=== PATIENT | female | born 1940 | race African-American/Black ===

== ENCOUNTER 2024-01-19 10:28 | Inpatient (IN) | payer BC, MEDICAID, MEDICARE ==
[2024-01-19] VITALS (10 sets, daily range): BP systolic 106–125; BP diastolic 62–83; PULSE 78–98; RESP 18–20; TEMP 36.28068–36.5292; O2SAT 96–98
[~2024-01-19] VITALS: Ht 160 cm; Wt 55.8 kg
[~2024-01-19 10:28] MED LIST: ASPIRIN; CLONIDINE; LISINOPRIL; LORATIDINE; [UNRECOGNIZED DRUG - OTHER]
[2024-01-19 11:55] LABS: HEMATOCRIT. 35.1 % (36.0-48.0); HEMOGLOBIN. 10.7 g/dL (12.0-16.0); MEAN CORPUSCULAR HEMOGLOBIN 30.1 pg (28.0-32.0); MEAN CORPUSCULAR HGB CONC 30.5 g/dL (31.0-37.0); MEAN CORPUSCULAR VOLUME 98.5 fL (81.0-99.0); PLATELET 157 x1000/uL (130-400); RED BLOOD CELL COUNT 3.57 mill/uL (4.2-5.4); RED CELL DISTRIBUTION WIDTH 18.5 % (11.6-14.6); WHITE BLOOD COUNT 3.7 x1000/uL (4.5-11.0)
[2024-01-19 11:58] LABS: DIFFERENTIAL COMMENT 1
[2024-01-19 12:04] LABS: CHLORIDE 105 mEq/L (98-107); POTASSIUM 4.5 mEq/L (3.5-5.1); SODIUM 141 mEq/L (136-145)
[2024-01-19 12:05] LABS: CALCIUM 9.8 mg/dL (8.7-10.4); CARBON DIOXIDE 35 mEq/L (21-32)
[2024-01-19 12:10] LABS: CREATININE 1.6 mg/dL (0.6-1.0); GLUCOSE 83 mg/dL (70-105); UREA NITROGEN BLOOD 45 mg/dL (9-23)
[2024-01-19 12:11] LABS: TROPONIN I HIGH SENSITIVITY 17 ng/L (3.0-34)
[2024-01-19 12:45] LABS: ANISOCYTOSIS 2+; PLATELET ESTIMATE NORMAL
[2024-01-19 13:17] LABS: HEPATITIS B SURFACE ANTIGEN NEGATIVE (Negative)
[2024-01-19 13:42] LABS: HEPATITIS A AB IGM NEGATIVE (Negative)
[2024-01-19 13:43] LABS: HEPATITIS B CORE AB IGM NEGATIVE (Negative); HEPATITIS C AB NON REACTIVE (Neg) (Negative)
[2024-01-19] MEDS ORDERED: IPRATROPIUM/ALBUTEROL 0.5-3(2.5)MG/3ML NEB HHN PRN (17:15)
[2024-01-19] MEDS ORDERED: ENOXAPARIN 40MG/0.4ML SYR SUBCUT SCH (17:15)
[2024-01-19] MEDS ORDERED: ONDANSETRON HCL 4MG/2ML INJ IV PRN (17:15)
[2024-01-19] MEDS ORDERED: ACETAMINOPHEN 325MG TABLET PO PRN (17:15)
[2024-01-19] MEDS: ENOXAPARIN 30MG/0.3ML SYR SUBCUT SCH (17:41)
[2024-01-19] MEDS ORDERED: NALOXONE HCL 0.4MG/ML VIAL IV PRN (21:15)
[2024-01-20] VITALS: BP 95/64; PULSE 79; RESP 20; TEMP 36.28068; O2SAT 99
[2024-01-20 00:59] LABS: CREATINE KINASE MB FRACTION 1.3 ng/mL (0.5-3.6)
[2024-01-20] MEDS: HYDROCODONE/ACETAMINOPHEN 5/325MG TABLET PO PRN (02:15)
[2024-01-20 04:00] VITALS: BP 102/63; PULSE 82; RESP 20; TEMP 36.22512; O2SAT 99
[2024-01-20 06:05] LABS: POTASSIUM 4.8 mEq/L (3.5-5.1)
[2024-01-20 06:08] LABS: HEMATOCRIT. 32.6 % (36.0-48.0); HEMOGLOBIN. 9.9 g/dL (12.0-16.0); MEAN CORPUSCULAR HEMOGLOBIN 29.9 pg (28.0-32.0); MEAN CORPUSCULAR HGB CONC 30.5 g/dL (31.0-37.0); MEAN CORPUSCULAR VOLUME 98.2 fL (81.0-99.0); PLATELET 140 x1000/uL (130-400); RED BLOOD CELL COUNT 3.32 mill/uL (4.2-5.4); RED CELL DISTRIBUTION WIDTH 18.5 % (11.6-14.6); WHITE BLOOD COUNT 2.8 x1000/uL (4.5-11.0)
[2024-01-20 06:11] LABS: CREATINE KINASE MB FRACTION 1.2 ng/mL (0.5-3.6); CREATININE 1.6 mg/dL (0.6-1.0)
[2024-01-20 06:15] LABS: T4 FREE 0.91 ng/dL (0.89-1.76); THYROID STIMULATING HORMONE 0.57 uIU/mL (0.55-4.78)
[2024-01-20 06:48] LABS: DIFFERENTIAL COMMENT 1
[2024-01-20 08:00] VITALS: BP 101/56; PULSE 82; RESP 17; TEMP 36.44736; O2SAT 100
[2024-01-20] MEDS: ASPIRIN 81MG EC TABLET PO SCH (08:57)
[2024-01-20 12:00] VITALS: BP 112/56; PULSE 88; RESP 17; TEMP 36.50292; O2SAT 100
[2024-01-20 12:31] LABS: PLATELET ESTIMATE NORMAL
[2024-01-20] MEDS: PIPERACILLIN/TAZO 3.375G/50ML 50 ML IV SCH (15:26)
[2024-01-20 16:00] VITALS: BP 107/59; PULSE 90; RESP 17; TEMP 36.50292; O2SAT 100
[2024-01-20 20:00] VITALS: BP 116/61; PULSE 72; RESP 17; TEMP 36.3918; O2SAT 96
[2024-01-21] VITALS (8 sets, daily range): BP systolic 92–131; BP diastolic 53–76; PULSE 78–88; RESP 17–20; TEMP 36.3918–36.78072; O2SAT 98–99
[2024-01-21] MEDS ORDERED: AMOX50SU15 MT ×2 (12:43→12:50)
[2024-01-22] MEDS ORDERED: PIPERACILLIN/TAZO 3.375G/50ML 50 ML IV SCH (02:00)
== END 2024-01-21 18:00 | DRG 189 ==
LOC: ER 10:28 → 8WST 12:23 → EDBEDREQTM 12:25 → EDBEDREQ 12:25
PROVIDERS: ADMIT Internal Medicine; ATTEND Internal Medicine
PROC: 5A1D70Z Performance of Urinary Filtration, Intermittent, Less than 6 Hours Per Day (ICD-10-PCS; principal; 2024-01-19)
PROC: 5A1D70Z Performance of Urinary Filtration, Intermittent, Less than 6 Hours Per Day (ICD-10-PCS; 2024-01-21)
DX: J96.01 Acute respiratory failure with hypoxia (principal); N18.6 End stage renal disease; I12.0 Hypertensive chronic kidney disease with stage 5 chronic kidney disease or end stage renal disease; E87.70 Fluid overload, unspecified; D64.9 Anemia, unspecified; J44.9 Chronic obstructive pulmonary disease, unspecified; Z99.2 Dependence on renal dialysis; Z99.81 Dependence on supplemental oxygen; I25.2 Old myocardial infarction
CPT/HCPCS: 36415; 71045; 80048; 82550; 82553; 83880; 84439; 84443; 84484; 85025; 86705; 86709; 87340; 90935; 93005; 99285; C1893; J1650; J2543

== ENCOUNTER 2024-04-06 06:06 | Inpatient (IN) | payer BC, MEDICAID, MEDICARE ==
[2024-04-06] VITALS (11 sets, daily range): BP systolic 81–101; BP diastolic 49–62; PULSE 77–95; RESP 18–24; TEMP 36.22512–36.44736; O2SAT 97–100
[~2024-04-06] VITALS: Ht 162.6 cm; Wt 49.0 kg
[~2024-04-06 06:06] MED LIST changes: +AMOX50SU15 MT; -ASPIRIN; -CLONIDINE; -LISINOPRIL; -LORATIDINE; -[UNRECOGNIZED DRUG - OTHER]
[2024-04-06 07:48] LABS: BASOPHILS % 0.4 % (0.0-2.0); DIFFERENTIAL COMMENT 0; EOSINOPHILS % 0.6 % (0.0-5.0); HEMATOCRIT. 43.6 % (36.0-48.0); HEMOGLOBIN. 13.9 g/dL (12.0-16.0); LYMPHOCYTES % 8.7 % (20.0-50.0); MEAN CORPUSCULAR HEMOGLOBIN 32.5 pg (28.0-32.0); MEAN CORPUSCULAR HGB CONC 31.8 g/dL (31.0-37.0); MEAN CORPUSCULAR VOLUME 102.3 fL (81.0-99.0); MEAN PLATELET VOLUME 8.1 fl (7.4-10.4); MONOCYTES % 5.5 % (2.0-8.0); NEUTROPHILS % 84.8 % (40.0-76.0); PLATELET 120 x1000/uL (130-400); RED BLOOD CELL COUNT 4.27 mill/uL (4.2-5.4); RED CELL DISTRIBUTION WIDTH 21.9 % (11.6-14.6)
[2024-04-06 07:56] LABS: CARBON DIOXIDE 30 mEq/L (21-32); CHLORIDE 99 mEq/L (98-107); POTASSIUM 5.7 mEq/L (3.5-5.1); SODIUM 138 mEq/L (136-145)
[2024-04-06 07:57] LABS: CALCIUM 9.6 mg/dL (8.7-10.4)
[2024-04-06 08:02] LABS: GLUCOSE 142 mg/dL (70-105)
[2024-04-06 08:08] LABS: UREA NITROGEN BLOOD 57 mg/dL (9-23)
[2024-04-06 08:28] LABS: CREATININE 4.4 mg/dL (0.6-1.0); TROPONIN I HIGH SENSITIVITY 199 ng/L (3.0-34)
[2024-04-06] MEDS: MORPHINE SULFATE 4 MG/ML INJ (FOR IV/IM USE) IV NR (09:18)
[2024-04-06] MEDS ORDERED: METOPROLOL TARTRATE 25MG TABLET PO NR (10:00)
[2024-04-06] MEDS ORDERED: METOPROLOL TARTRATE 5MG/5ML VIAL IV NR (10:00)
[2024-04-06] MEDS: ENOXAPARIN 60MG/0.6ML SYR SUBCUT NR (10:04)
[2024-04-06] MEDS: ASPIRIN 325MG EC TABLET PO NR (10:06)
[2024-04-06] MEDS ORDERED: ONDANSETRON HCL 4MG/2ML INJ IV PRN (10:30)
[2024-04-06 10:32] LABS: TROPONIN I HIGH SENSITIVITY 227 ng/L (3.0-34)
[2024-04-06] MEDS: CALCIUM CHLORIDE 1GM/10ML SYR IV NR (10:42)
[2024-04-06] MEDS: METHYLPREDNISOLONE SOD SUCC 40MG/ML (ACT-O-VIAL) IV SCH (10:42)
[2024-04-06] MEDS: SODIUM CHLORIDE 0.9% 250 ML IV ONE (10:49)
[2024-04-06] MEDS: INSULIN REGULAR (HUMULIN R) 1000UNITS/10ML VIAL IV NR (10:56)
[2024-04-06] MEDS: DEXTROSE 50% WATER 50ML SYRINGE IV NR (11:05)
[2024-04-06 12:29] LABS: HEPATITIS B SURFACE ANTIGEN NEGATIVE (Negative)
[2024-04-06 12:50] LABS: HEPATITIS A AB IGM NEGATIVE (Negative); HEPATITIS B CORE AB IGM NEGATIVE (Negative)
[2024-04-06 12:51] LABS: HEPATITIS C AB NON REACTIVE (Neg) (Negative)
[2024-04-06] MEDS: IPRATROPIUM/ALBUTEROL 0.5-3(2.5)MG/3ML NEB HHN SCH (12:55)
[2024-04-06] MEDS ORDERED: HEPARIN 5000 UNITS/ML VIAL IV PRN ×2 (15:15)
[2024-04-06] MEDS ORDERED: HEPARIN 5000 UNITS/ML VIAL IV SCH (15:15)
[2024-04-06] MEDS ORDERED: HEPARIN 25,000 UNITS PREMIX 250 ML IV PRN (15:15)
[2024-04-06 16:26] LABS: INR 1.3; PARTIAL THROMBOPLASTIN TIME 32.5 sec (23.4-31.0); PROTHROMBIN TIME 13.8 sec (9.6-11.0)
[2024-04-06] MEDS: MIDODRINE HCL 5MG TABLET PO SCH (16:32)
[2024-04-06] MEDS: NOREPINEPHRINE 8MG/250ML PMX 250 ML IV PRN (17:19)
[2024-04-06] MEDS ORDERED: FAMOTIDINE 20MG TABLET PO SCH (21:00)
[2024-04-06] MEDS ORDERED: ATORVASTATIN CALCIUM 40MG TABLET PO SCH (21:00)
[2024-04-07] VITALS (17 sets, daily range): BP systolic 93–115; BP diastolic 51–98; PULSE 62–122; RESP 13–25; TEMP 36.72516–36.7516; O2SAT 92–100
[2024-04-07] MEDS ORDERED: IPRATROPIUM/ALBUTEROL 0.5-3(2.5)MG/3ML NEB HHN PRN (03:15)
[2024-04-07] MEDS: IPRATROPIUM/ALBUTEROL 0.5-3(2.5)MG/3ML NEB HHN SCH (03:21)
[2024-04-07] MEDS: FAMOTIDINE 20MG TABLET PO SCH (05:49)
[2024-04-07] MEDS: ASPIRIN 81MG TABLET PO SCH (09:00)
[2024-04-07] MEDS: ENOXAPARIN 60MG/0.6ML SYR SUBCUT SCH (10:07)
[2024-04-07 19:21] LABS: BG BASE EXCESS -10.4 mmol/L (-2.0-3.0); BG CARBOXYHEMOGLOBIN 1.3 % (0.5-1.5); BG DEOXYHEMOGLOBIN 7.4 % (0.0-5.0); BG FRACTION INSPIRED OXYGEN 36; BG HCO3 ACT 17.7 mmol/L (21.0-28.0); BG METHEMOGLOBIN 0.3 % (0.5-1.5); BG OXYGEN SATURATION 92.5 % (94.0-98.0); BG PCO2 48.3 mmHg (32.0-45.0); BG PH 7.183 (7.350-7.450); BG PO2 70.4 mmHg (83.0-108.0); BG SAMPLE SITE RIGHT RADIAL; BG TOTAL HEMOGLOBIN 12.9 g/dL (12.0-16.0); BG VENT MODE NASAL CANNULA
[2024-04-07] MEDS: BUDESONIDE 0.5MG/2ML NEB HHN SCH (19:51)
[2024-04-07] MEDS: ATORVASTATIN CALCIUM 40MG TABLET PO SCH (22:37)
[2024-04-07] MEDS: NOREPINEPHRINE 8MG/250ML PMX 250 ML IV PRN (22:53)
[2024-04-08] VITALS (100 sets, daily range): BP systolic 76–162; BP diastolic 25–129; PULSE 80–125; RESP 12–27; TEMP 36.44736–36.9474; O2SAT 87–100
[2024-04-08] MEDS: DIPHENHYDRAMINE 50MG/ML VIAL IV PRN (02:22)
[2024-04-08 06:19] LABS: CALCIUM 9.7 mg/dL (8.7-10.4)
[2024-04-08 06:21] LABS: HEMATOCRIT. 43.9 % (36.0-48.0); HEMOGLOBIN. 13.4 g/dL (12.0-16.0); MEAN CORPUSCULAR HEMOGLOBIN 32.5 pg (28.0-32.0); MEAN CORPUSCULAR HGB CONC 30.6 g/dL (31.0-37.0); MEAN CORPUSCULAR VOLUME 106.2 fL (81.0-99.0); PLATELET 120 x1000/uL (130-400); RED BLOOD CELL COUNT 4.14 mill/uL (4.2-5.4); RED CELL DISTRIBUTION WIDTH 20.8 % (11.6-14.6); WHITE BLOOD COUNT 4.5 x1000/uL (4.5-11.0)
[2024-04-08 06:43] LABS: CREATININE 5.3 mg/dL (0.6-1.0)
[2024-04-08 07:30] LABS: DIFFERENTIAL COMMENT 1
[2024-04-08] MEDS: SODIUM ZIRCONIUM CYCLOSILICATE 10GM/PACKET PO NR (07:30)
[2024-04-08] MEDS: SODIUM BICARBONATE 8.4% 50MEQ/50ML SYR IV NR (09:39)
[2024-04-08] MEDS: DEXTROSE 50% WATER 50ML SYRINGE IV NR (09:39)
[2024-04-08] MEDS: INSULIN REGULAR (HUMULIN R) 1000UNITS/10ML VIAL IV NR (09:40)
[2024-04-08 10:40] LABS: ANISOCYTOSIS 2+; PLATELET ESTIMATE NORMAL
[2024-04-09] VITALS (114 sets, daily range): BP systolic 58–169; BP diastolic 25–142; PULSE 15–125; RESP 12–25; TEMP 36.28068–36.72516; O2SAT 88–100
[2024-04-09 06:26] LABS: BG BASE EXCESS -3.8 mmol/L (-2.0-3.0); BG DEOXYHEMOGLOBIN 3.2 % (0.0-5.0); BG FRACTION INSPIRED OXYGEN 40; BG HCO3 ACT 25.6 mmol/L (21.0-28.0); BG METHEMOGLOBIN 0.3 % (0.5-1.5); BG OXYGEN SATURATION 96.8 % (94.0-98.0); BG OXYHEMOGLOBIN 95.5 % (94.0-98.0); BG PCO2 66.9 mmHg (32.0-45.0); BG PO2 95.9 mmHg (83.0-108.0); BG SAMPLE SITE RIGHT RADIAL; BG TOTAL HEMOGLOBIN 13.9 g/dL (12.0-16.0); BG VENT MODE MASK - SIMPLE
[2024-04-09 07:34] LABS: CHLORIDE 105 mEq/L (98-107); POTASSIUM 4.9 mEq/L (3.5-5.1); SODIUM 141 mEq/L (136-145)
[2024-04-09 07:34] LABS: INR 1.2; PARTIAL THROMBOPLASTIN TIME 31.3 sec (23.4-31.0)
[2024-04-09 07:35] LABS: CALCIUM 9.8 mg/dL (8.7-10.4); CARBON DIOXIDE 21 mEq/L (21-32)
[2024-04-09 07:40] LABS: CREATININE 4.1 mg/dL (0.6-1.0); GLUCOSE 125 mg/dL (70-105); UREA NITROGEN BLOOD 42 mg/dL (9-23)
[2024-04-09 07:42] LABS: ALANINE AMINOTRANSFERASE 43 IU/L (10-49); ALBUMIN 3.7 g/dL (3.2-4.8); ASPARTATE AMINOTRANSFERASE 30 IU/L (<34); PHOSPHORUS 7.2 mg/dL (2.5-4.9)
[2024-04-09 07:43] LABS: BILIRUBIN TOTAL 0.5 mg/dL (0.1-1.0); PROTEIN TOTAL 6.4 g/dL (6.0-8.3)
[2024-04-09 07:46] LABS: HEMATOCRIT. 42.6 % (36.0-48.0); HEMOGLOBIN. 13.1 g/dL (12.0-16.0); MEAN CORPUSCULAR HEMOGLOBIN 32.6 pg (28.0-32.0); MEAN CORPUSCULAR HGB CONC 30.6 g/dL (31.0-37.0); MEAN CORPUSCULAR VOLUME 106.5 fL (81.0-99.0); MEAN PLATELET VOLUME 8.9 fl (7.4-10.4); PLATELET 109 x1000/uL (130-400); RED CELL DISTRIBUTION WIDTH 20.9 % (11.6-14.6); WHITE BLOOD COUNT 5.9 x1000/uL (4.5-11.0)
[2024-04-09 07:53] LABS: DIFFERENTIAL COMMENT 1
[2024-04-09 08:48] LABS: NUCLEATED RED BLOOD CELLS 4 /100 WBC
[2024-04-09 08:49] LABS: ANISOCYTOSIS 2+; PLATELET ESTIMATE SLIGHTLY DECREASED
[2024-04-10] VITALS (95 sets, daily range): BP systolic 73–160; BP diastolic 32–122; PULSE 91–111; RESP 13–28; TEMP 36.16956–37.94748; O2SAT 91–100
[2024-04-10] MEDS: ACETAMINOPHEN 325MG TABLET PO PRN (04:41)
[2024-04-10 06:39] LABS: HEMATOCRIT. 40.7 % (36.0-48.0); HEMOGLOBIN. 12.6 g/dL (12.0-16.0); MEAN CORPUSCULAR HEMOGLOBIN 32.2 pg (28.0-32.0); MEAN CORPUSCULAR HGB CONC 30.9 g/dL (31.0-37.0); MEAN PLATELET VOLUME 9.4 fl (7.4-10.4); PLATELET 112 x1000/uL (130-400); RED BLOOD CELL COUNT 3.92 mill/uL (4.2-5.4); RED CELL DISTRIBUTION WIDTH 21.1 % (11.6-14.6)
[2024-04-10 06:40] LABS: CHLORIDE 106 mEq/L (98-107); POTASSIUM 4.9 mEq/L (3.5-5.1); SODIUM 142 mEq/L (136-145)
[2024-04-10 06:43] LABS: CALCIUM 10.4 mg/dL (8.7-10.4); CARBON DIOXIDE 20 mEq/L (21-32)
[2024-04-10 06:48] LABS: GLUCOSE 123 mg/dL (70-105); UREA NITROGEN BLOOD 62 mg/dL (9-23)
[2024-04-10 06:49] LABS: ALANINE AMINOTRANSFERASE 41 IU/L (10-49)
[2024-04-10 06:50] LABS: ALBUMIN 3.8 g/dL (3.2-4.8); ASPARTATE AMINOTRANSFERASE 20 IU/L (<34); BILIRUBIN TOTAL 0.5 mg/dL (0.1-1.0); PROTEIN TOTAL 6.2 g/dL (6.0-8.3)
[2024-04-10 06:58] LABS: DIFFERENTIAL COMMENT 1
[2024-04-10 07:01] LABS: INR 1.2; PARTIAL THROMBOPLASTIN TIME 32.7 sec (23.4-31.0); PROTHROMBIN TIME 13.5 sec (9.6-11.0)
[2024-04-10 08:43] LABS: CREATININE 5.3 mg/dL (0.6-1.0)
[2024-04-10 08:45] LABS: PHOSPHORUS 8.4 mg/dL (2.5-4.9)
[2024-04-10 13:02] LABS: NUCLEATED RED BLOOD CELLS 3 /100 WBC; PLATELET ESTIMATE SLIGHTLY DECREASED
[2024-04-10 13:03] LABS: ANISOCYTOSIS 1+
[2024-04-10] MEDS: ENOXAPARIN 30MG/0.3ML SYR SUBCUT SCH (16:08)
[2024-04-11] VITALS (98 sets, daily range): BP systolic 84–152; BP diastolic 34–138; PULSE 85–110; RESP 13–27; TEMP 35.5584–36.61404; O2SAT 86–100
[2024-04-11 06:39] LABS: HEMOGLOBIN. 12.8 g/dL (12.0-16.0); MEAN CORPUSCULAR HEMOGLOBIN 32.2 pg (28.0-32.0); MEAN CORPUSCULAR HGB CONC 31.2 g/dL (31.0-37.0); MEAN CORPUSCULAR VOLUME 103.3 fL (81.0-99.0); MEAN PLATELET VOLUME 9.6 fl (7.4-10.4); PLATELET 98 x1000/uL (130-400); RED BLOOD CELL COUNT 3.98 mill/uL (4.2-5.4); RED CELL DISTRIBUTION WIDTH 21.2 % (11.6-14.6)
[2024-04-11 06:42] LABS: DIFFERENTIAL COMMENT 1
[2024-04-11 06:58] LABS: CARBON DIOXIDE 20 mEq/L (21-32); CHLORIDE 102 mEq/L (98-107); POTASSIUM 4.6 mEq/L (3.5-5.1); SODIUM 138 mEq/L (136-145)
[2024-04-11 06:59] LABS: CALCIUM 10.7 mg/dL (8.7-10.4)
[2024-04-11 07:03] LABS: CREATININE 4.5 mg/dL (0.6-1.0); GLUCOSE 100 mg/dL (70-105)
[2024-04-11 07:04] LABS: UREA NITROGEN BLOOD 51 mg/dL (9-23)
[2024-04-11 07:05] LABS: ALANINE AMINOTRANSFERASE 41 IU/L (10-49); ALBUMIN 3.9 g/dL (3.2-4.8); ASPARTATE AMINOTRANSFERASE 24 IU/L (<34)
[2024-04-11 07:06] LABS: BILIRUBIN TOTAL 0.5 mg/dL (0.1-1.0); PROTEIN TOTAL 6.3 g/dL (6.0-8.3)
[2024-04-11 07:23] LABS: INR 1.2; PARTIAL THROMBOPLASTIN TIME 29.7 sec (23.4-31.0)
[2024-04-11] MEDS: SEVELAMER CARBONATE 800 MG TABLET PO SCH (13:20)
[2024-04-11 16:37] LABS: PLATELET ESTIMATE SLIGHTLY DECREASED
[2024-04-11 21:15] LABS: BG CARBOXYHEMOGLOBIN 1.4 % (0.5-1.5); BG DEOXYHEMOGLOBIN 5.5 % (0.0-5.0); BG FRACTION INSPIRED OXYGEN 36; BG HCO3 ACT 23.4 mmol/L (21.0-28.0); BG METHEMOGLOBIN 0.3 % (0.5-1.5); BG OXYGEN SATURATION 94.4 % (94.0-98.0); BG OXYHEMOGLOBIN 92.8 % (94.0-98.0); BG PCO2 58.6 mmHg (32.0-45.0); BG PO2 80.2 mmHg (83.0-108.0); BG SAMPLE SITE RIGHT RADIAL; BG TOTAL HEMOGLOBIN 13.5 g/dL (12.0-16.0); BG VENT MODE NASAL CANNULA
[2024-04-12] VITALS (107 sets, daily range): BP systolic 84–142; BP diastolic 39–124; PULSE 74–97; RESP 13–26; TEMP 36.22512–37.11408; O2SAT 94–100
[2024-04-12] MEDS: BUDESONIDE 0.5MG/2ML NEB HHN SCH (02:20)
[2024-04-12 06:46] LABS: INR 1.2
[2024-04-12 06:53] LABS: HEMOGLOBIN 12.4 g/dL (12.0-16.0); MEAN CORPUSCULAR HEMOGLOBIN 32.4 pg (28.0-32.0); MEAN CORPUSCULAR HGB CONC 31.8 g/dL (31.0-37.0); MEAN CORPUSCULAR VOLUME 101.8 fL (81.0-99.0); PLATELET 92 x1000/uL (130-400); RED BLOOD CELL COUNT 3.83 mill/uL (4.2-5.4); RED CELL DISTRIBUTION WIDTH 20.2 % (11.6-14.6); WHITE BLOOD COUNT 3.2 x1000/uL (4.5-11.0)
[2024-04-12 06:59] LABS: POTASSIUM 4.6 mEq/L (3.5-5.1)
[2024-04-12 07:00] LABS: CALCIUM 10.1 mg/dL (8.7-10.4)
[2024-04-12 07:28] LABS: CREATININE 5.3 mg/dL (0.6-1.0)
[2024-04-12 09:21] LABS: BG BASE EXCESS -4.7 mmol/L (-2.0-3.0); BG CARBOXYHEMOGLOBIN 1.5 % (0.5-1.5); BG DEOXYHEMOGLOBIN 0.4 % (0.0-5.0); BG FRACTION INSPIRED OXYGEN 50; BG HCO3 ACT 23.6 mmol/L (21.0-28.0); BG METHEMOGLOBIN 0.1 % (0.5-1.5); BG OXYGEN SATURATION 99.6 % (94.0-98.0); BG PCO2 57.9 mmHg (32.0-45.0); BG PH 7.229 (7.350-7.450); BG PO2 177.3 mmHg (83.0-108.0); BG SAMPLE SITE RIGHT RADIAL; BG TOTAL HEMOGLOBIN 13.3 g/dL (12.0-16.0); BG TOTAL RESPIRATORY RATE 16 b/min; BG VENT MODE MASK - BIPAP
[2024-04-12 13:35] LABS: BG BASE EXCESS -5.7 mmol/L (-2.0-3.0); BG CARBOXYHEMOGLOBIN 1.3 % (0.5-1.5); BG DEOXYHEMOGLOBIN 0.9 % (0.0-5.0); BG FRACTION INSPIRED OXYGEN 50; BG HCO3 ACT 23.2 mmol/L (21.0-28.0); BG METHEMOGLOBIN 0.3 % (0.5-1.5); BG OXYGEN SATURATION 99.1 % (94.0-98.0); BG OXYHEMOGLOBIN 97.5 % (94.0-98.0); BG PCO2 61.1 mmHg (32.0-45.0); BG PH 7.198 (7.350-7.450); BG PO2 139.7 mmHg (83.0-108.0); BG SAMPLE SITE RIGHT RADIAL; BG TOTAL HEMOGLOBIN 13.3 g/dL (12.0-16.0); BG VENT MODE MASK - BIPAP
[2024-04-12] MEDS: IPRATROPIUM/ALBUTEROL 0.5-3(2.5)MG/3ML NEB HHN SCH (14:20)
[2024-04-13] VITALS (104 sets, daily range): BP systolic 66–162; BP diastolic 35–132; PULSE 65–103; RESP 12–26; TEMP 36.6696–37.05852; O2SAT 66–100
[2024-04-13 08:57] LABS: HEMOGLOBIN. 12.1 g/dL (12.0-16.0); MEAN CORPUSCULAR HEMOGLOBIN 32.4 pg (28.0-32.0); MEAN CORPUSCULAR VOLUME 101.2 fL (81.0-99.0); MEAN PLATELET VOLUME 9.6 fl (7.4-10.4); PLATELET 87 x1000/uL (130-400); RED BLOOD CELL COUNT 3.75 mill/uL (4.2-5.4); RED CELL DISTRIBUTION WIDTH 20.1 % (11.6-14.6)
[2024-04-13 09:03] LABS: DIFFERENTIAL COMMENT 1
[2024-04-13 09:11] LABS: CALCIUM 9.9 mg/dL (8.7-10.4)
[2024-04-13 09:47] LABS: BG BASE EXCESS 0.3 mmol/L (-2.0-3.0); BG CARBOXYHEMOGLOBIN 1.8 % (0.5-1.5); BG DEOXYHEMOGLOBIN 0.6 % (0.0-5.0); BG FRACTION INSPIRED OXYGEN 50; BG METHEMOGLOBIN 0.3 % (0.5-1.5); BG OXYGEN SATURATION 99.4 % (94.0-98.0); BG OXYHEMOGLOBIN 97.3 % (94.0-98.0); BG PCO2 52.5 mmHg (32.0-45.0); BG PH 7.329 (7.350-7.450); BG PO2 147.6 mmHg (83.0-108.0); BG SAMPLE SITE RIGHT RADIAL; BG TOTAL HEMOGLOBIN 12.3 g/dL (12.0-16.0); BG VENT MODE MASK - BIPAP
[2024-04-13 17:02] LABS: ANISOCYTOSIS 2+; GIANT PLATELETS FEW; PLATELET ESTIMATE DECREASED
[2024-04-14] VITALS (62 sets, daily range): BP systolic 79–152; BP diastolic 48–80; PULSE 70–102; RESP 13–25; TEMP 36.6696–36.89184; O2SAT 94–100
[2024-04-14 06:48] LABS: CHLORIDE 106 mEq/L (98-107); POTASSIUM 4.3 mEq/L (3.5-5.1); SODIUM 142 mEq/L (136-145)
[2024-04-14 06:49] LABS: CALCIUM 9.6 mg/dL (8.7-10.4); CARBON DIOXIDE 26 mEq/L (21-32)
[2024-04-14 06:54] LABS: GLUCOSE 105 mg/dL (70-105); UREA NITROGEN BLOOD 70 mg/dL (9-23)
[2024-04-14 06:56] LABS: PHOSPHORUS 5.6 mg/dL (2.5-4.9)
[2024-04-14 07:05] LABS: CREATININE 5.8 mg/dL (0.6-1.0)
[2024-04-14 07:07] LABS: HEMOGLOBIN. 11.3 g/dL (12.0-16.0); MEAN CORPUSCULAR HEMOGLOBIN 32.6 pg (28.0-32.0); MEAN CORPUSCULAR HGB CONC 32.2 g/dL (31.0-37.0); PLATELET 81 x1000/uL (130-400); RED BLOOD CELL COUNT 3.47 mill/uL (4.2-5.4); RED CELL DISTRIBUTION WIDTH 19.9 % (11.6-14.6); WHITE BLOOD COUNT 5.3 x1000/uL (4.5-11.0)
[2024-04-14 08:12] LABS: DIFFERENTIAL COMMENT 1
[2024-04-14 13:14] LABS: PLATELET ESTIMATE DECREASED
[2024-04-14 13:15] LABS: ANISOCYTOSIS 2+
[2024-04-15] VITALS (24 sets, daily range): BP systolic 88–125; BP diastolic 39–71; PULSE 81–92; RESP 12–24; TEMP 36.16956–36.61404; O2SAT 89–100
[2024-04-15 06:03] LABS: POTASSIUM 4.7 mEq/L (3.5-5.1)
[2024-04-15 06:04] LABS: CALCIUM 10.1 mg/dL (8.7-10.4)
[2024-04-15 06:13] LABS: CREATININE 6.6 mg/dL (0.6-1.0)
[2024-04-15 07:18] LABS: HEMATOCRIT. 35.8 % (36.0-48.0); HEMOGLOBIN. 11.2 g/dL (12.0-16.0); MEAN CORPUSCULAR HEMOGLOBIN 31.9 pg (28.0-32.0); MEAN CORPUSCULAR HGB CONC 31.3 g/dL (31.0-37.0); MEAN CORPUSCULAR VOLUME 101.8 fL (81.0-99.0); MEAN PLATELET VOLUME 10.3 fl (7.4-10.4); PLATELET 86 x1000/uL (130-400); RED BLOOD CELL COUNT 3.51 mill/uL (4.2-5.4); RED CELL DISTRIBUTION WIDTH 20.2 % (11.6-14.6); WHITE BLOOD COUNT 4.6 x1000/uL (4.5-11.0)
[2024-04-15 09:37] LABS: DIFFERENTIAL COMMENT 1
[2024-04-15 17:53] LABS: ANISOCYTOSIS 1+; PLATELET ESTIMATE DECREASED
[2024-04-16] VITALS (14 sets, daily range): BP systolic 101–123; BP diastolic 65–82; PULSE 85–105; RESP 13–23; TEMP 36.05844–36.50292; O2SAT 82–96
[2024-04-16] MEDS ORDERED: IODIXANOL 320MG/ML 100 ML BOTTLE IV ONE (09:35)
[2024-04-16] MEDS ORDERED: HEPARIN 1000 UNITS/ML 10ML ONE (09:35)
[2024-04-16] MEDS ORDERED: LIDOCAINE HCL 1% 20ML VIAL ONE (09:35)
[2024-04-16] MEDS ORDERED: FENTANYL CITRATE/PF 50MCG/ML 2ML VIAL ONE (10:05)
[2024-04-16] MEDS ORDERED: DIPHENHYDRAMINE 50MG/ML VIAL ONE (10:05)
[2024-04-16] MEDS ORDERED: MIDAZOLAM HCL 2 MG/2 ML VIAL ONE (10:05)
[2024-04-16] MEDS ORDERED: VERAPAMIL HCL 2.5 MG/1 ML 2ML VIAL IV ONE (10:12)
[2024-04-16] MEDS ORDERED: ATROPINE SULFATE 1MG/10ML SYR IV PRN (11:30)
[2024-04-16 18:55] LABS: BG BASE EXCESS -2.4 mmol/L (-2.0-3.0); BG CARBOXYHEMOGLOBIN 1.8 % (0.5-1.5); BG DEOXYHEMOGLOBIN 17.6 % (0.0-5.0); BG FRACTION INSPIRED OXYGEN 32; BG METHEMOGLOBIN 0.3 % (0.5-1.5); BG OXYHEMOGLOBIN 80.3 % (94.0-98.0); BG PCO2 54.2 mmHg (32.0-45.0); BG PH 7.282 (7.350-7.450); BG PO2 49.9 mmHg (83.0-108.0); BG SAMPLE SITE RIGHT BRACHIAL; BG TOTAL HEMOGLOBIN 13.1 g/dL (12.0-16.0); BG VENT MODE NASAL CANNULA
[2024-04-17] VITALS (13 sets, daily range): BP systolic 106–137; BP diastolic 61–83; PULSE 83–98; RESP 15–21; TEMP 36.44736–36.72516; O2SAT 95–100
[2024-04-17 08:00] LABS: CHLORIDE 108 mEq/L (98-107); POTASSIUM 4.8 mEq/L (3.5-5.1); SODIUM 142 mEq/L (136-145)
[2024-04-17 08:01] LABS: CALCIUM 10.3 mg/dL (8.7-10.4); CARBON DIOXIDE 24 mEq/L (21-32)
[2024-04-17 08:06] LABS: GLUCOSE 136 mg/dL (70-105); UREA NITROGEN BLOOD 93 mg/dL (9-23)
[2024-04-17 08:08] LABS: PHOSPHORUS 7.2 mg/dL (2.5-4.9)
[2024-04-17 08:23] LABS: HEMATOCRIT. 38.6 % (36.0-48.0); HEMOGLOBIN. 12.2 g/dL (12.0-16.0); MEAN CORPUSCULAR HEMOGLOBIN 32.7 pg (28.0-32.0); MEAN CORPUSCULAR HGB CONC 31.7 g/dL (31.0-37.0); MEAN CORPUSCULAR VOLUME 103.2 fL (81.0-99.0); PLATELET 107 x1000/uL (130-400); RED BLOOD CELL COUNT 3.75 mill/uL (4.2-5.4); WHITE BLOOD COUNT 4.9 x1000/uL (4.5-11.0)
[2024-04-17 08:35] LABS: DIFFERENTIAL COMMENT 1
[2024-04-17 09:04] LABS: CREATININE 6.2 mg/dL (0.6-1.0)
[2024-04-17 20:17] LABS: ANISOCYTOSIS 1+; PLATELET ESTIMATE SLIGHTLY DECREASED
[2024-04-18] VITALS (16 sets, daily range): BP systolic 115–154; BP diastolic 65–77; PULSE 88–105; RESP 18–20; TEMP 36.00288–36.89184; O2SAT 96–100
[2024-04-19] VITALS (8 sets, daily range): BP systolic 129–150; BP diastolic 77–83; PULSE 74–89; RESP 18–23; TEMP 36.00288–36.89184; O2SAT 96–99
[2024-04-20 04:00] VITALS: BP 109/65; PULSE 89; RESP 18; TEMP 35.72508; O2SAT 97
[2024-04-20 08:00] VITALS: BP 108/72; PULSE 82; RESP 18; TEMP 37.05852
[2024-04-20 12:00] VITALS: BP 118/78; PULSE 78; RESP 18; TEMP 36.55848
[2024-04-20 16:00] VITALS: BP 150/78; PULSE 80; RESP 18; TEMP 36.3918
[2024-04-20] MEDS: IOHEXOL-350 100 ML BOTTLE ONE (19:54)
[2024-04-20] MEDS: LIDOCAINE HCL 1% 10 MG/ML 10ML VIAL ONE (19:54)
[2024-04-20 20:00] VITALS: BP 143/75; PULSE 45; RESP 16; TEMP 36.00288; O2SAT 93
[2024-04-21] VITALS (15 sets, daily range): BP systolic 130–168; BP diastolic 63–82; PULSE 75–99; RESP 16–22; TEMP 35.61396–36.61404; O2SAT 95–99
[2024-04-22 06:00] VITALS: BP 141/78; PULSE 84; RESP 18; TEMP 36.114; O2SAT 98
[2024-04-22 08:00] VITALS: BP 138/84; PULSE 89; RESP 18; TEMP 36.114; O2SAT 98
[2024-04-22 12:00] VITALS: BP 134/78; PULSE 87; RESP 20; TEMP 36.6696; O2SAT 97
[2024-04-22 16:00] VITALS: BP 150/88; PULSE 16; RESP 16; TEMP 36.6696; O2SAT 97
[2024-04-22 18:38] LABS: HEMATOCRIT. 39.3 % (36.0-48.0); HEMOGLOBIN. 12.4 g/dL (12.0-16.0); MEAN CORPUSCULAR HGB CONC 31.5 g/dL (31.0-37.0); MEAN CORPUSCULAR VOLUME 101.7 fL (81.0-99.0); MEAN PLATELET VOLUME 10.8 fl (7.4-10.4); PLATELET 94 x1000/uL (130-400); RED BLOOD CELL COUNT 3.86 mill/uL (4.2-5.4)
[2024-04-22 18:42] LABS: CHLORIDE 107 mEq/L (98-107); POTASSIUM 4.9 mEq/L (3.5-5.1); SODIUM 143 mEq/L (136-145)
[2024-04-22 18:43] LABS: CARBON DIOXIDE 26 mEq/L (21-32)
[2024-04-22 18:55] LABS: DIFFERENTIAL COMMENT 1
[2024-04-22 20:00] VITALS: BP 140/82; PULSE 89; RESP 18; TEMP 36.33624; O2SAT 95
[2024-04-22 20:10] LABS: ANISOCYTOSIS 1+; GIANT PLATELETS FEW; PLATELET ESTIMATE DECREASED
[2024-04-23] VITALS (7 sets, daily range): BP systolic 142–161; BP diastolic 70–86; PULSE 81–96; RESP 16–20; TEMP 35.39172–36.72516; O2SAT 92–100
[2024-04-23 11:56] LABS: HEMATOCRIT. 42.7 % (36.0-48.0); MEAN CORPUSCULAR HEMOGLOBIN 31.6 pg (28.0-32.0); MEAN CORPUSCULAR HGB CONC 30.3 g/dL (31.0-37.0); MEAN CORPUSCULAR VOLUME 104.2 fL (81.0-99.0); MEAN PLATELET VOLUME 11.4 fl (7.4-10.4); PLATELET 89 x1000/uL (130-400); RED CELL DISTRIBUTION WIDTH 19.1 % (11.6-14.6); WHITE BLOOD COUNT 7.5 x1000/uL (4.5-11.0)
[2024-04-23 11:58] LABS: CALCIUM 10.9 mg/dL (8.7-10.4)
[2024-04-23 12:18] LABS: DIFFERENTIAL COMMENT 1
[2024-04-23 12:23] LABS: CREATININE 6.2 mg/dL (0.6-1.0)
[2024-04-23] MEDS: ENOXAPARIN 30MG/0.3ML SYR SUBCUT SCH (13:43)
[2024-04-23 14:05] LABS: NUCLEATED RED BLOOD CELLS 1 /100 WBC; PLATELET ESTIMATE DECREASED
[2024-04-24] VITALS (20 sets, daily range): BP systolic 89–180; BP diastolic 50–80; PULSE 68–92; RESP 13–21; TEMP 35.61396–36.89184; O2SAT 96–100
[2024-04-24] MEDS: DEXT 5%/0.9% NACL 500 ML IV ONE (08:45)
[2024-04-24 09:40] LABS: POTASSIUM 4.5 mEq/L (3.5-5.1)
[2024-04-24 09:41] LABS: CALCIUM 10.1 mg/dL (8.7-10.4)
[2024-04-24 09:44] LABS: HEMATOCRIT. 37.1 % (36.0-48.0); HEMOGLOBIN. 11.8 g/dL (12.0-16.0); MEAN CORPUSCULAR HEMOGLOBIN 31.5 pg (28.0-32.0); MEAN CORPUSCULAR HGB CONC 31.7 g/dL (31.0-37.0); MEAN CORPUSCULAR VOLUME 99.4 fL (81.0-99.0); MEAN PLATELET VOLUME 11.6 fl (7.4-10.4); PLATELET 72 x1000/uL (130-400); RED BLOOD CELL COUNT 3.73 mill/uL (4.2-5.4); RED CELL DISTRIBUTION WIDTH 18.3 % (11.6-14.6)
[2024-04-24 09:58] LABS: DIFFERENTIAL COMMENT 1
[2024-04-24] MEDS: VANCOMYCIN 1GM/200ML PMX (BAXTER) IV NR (15:30)
[2024-04-24] MEDS: PIPERACILLIN/TAZO 3.375G/50ML 50 ML IV SCH (16:00)
[2024-04-24 16:07] LABS: BG BASE EXCESS -5.8 mmol/L (-2.0-3.0); BG CARBOXYHEMOGLOBIN 1.1 % (0.5-1.5); BG DEOXYHEMOGLOBIN 2.9 % (0.0-5.0); BG FRACTION INSPIRED OXYGEN 40; BG HCO3 ACT 21.7 mmol/L (21.0-28.0); BG METHEMOGLOBIN 0.3 % (0.5-1.5); BG OXYGEN SATURATION 97.1 % (94.0-98.0); BG OXYHEMOGLOBIN 95.7 % (94.0-98.0); BG PCO2 51.9 mmHg (32.0-45.0); BG PH 7.239 (7.350-7.450); BG PO2 101.2 mmHg (83.0-108.0); BG SAMPLE SITE RIGHT BRACHIAL; BG TOTAL HEMOGLOBIN 11.3 g/dL (12.0-16.0); BG VENT MODE MASK - BIPAP
[2024-04-24 16:21] LABS: CHLORIDE 111 mEq/L (98-107); POTASSIUM 4.7 mEq/L (3.5-5.1); SODIUM 148 mEq/L (136-145)
[2024-04-24 16:22] LABS: CARBON DIOXIDE 24 mEq/L (21-32); HEMATOCRIT. 33.6 % (36.0-48.0); HEMOGLOBIN. 10.7 g/dL (12.0-16.0); MEAN CORPUSCULAR HEMOGLOBIN 32.1 pg (28.0-32.0); MEAN CORPUSCULAR HGB CONC 31.7 g/dL (31.0-37.0); MEAN PLATELET VOLUME 11.3 fl (7.4-10.4); PLATELET 64 x1000/uL (130-400); RED BLOOD CELL COUNT 3.32 mill/uL (4.2-5.4); RED CELL DISTRIBUTION WIDTH 18.8 % (11.6-14.6); WHITE BLOOD COUNT 7.5 x1000/uL (4.5-11.0)
[2024-04-24 16:23] LABS: DIFFERENTIAL COMMENT 1
[2024-04-24 16:27] LABS: GLUCOSE 124 mg/dL (70-105)
[2024-04-24 16:34] LABS: TROPONIN I HIGH SENSITIVITY 124 ng/L (3.0-34); UREA NITROGEN BLOOD 108 mg/dL (9-23)
[2024-04-24] MEDS: IPRATROPIUM/ALBUTEROL 0.5-3(2.5)MG/3ML NEB HHN SCH (20:00)
[2024-04-24 22:00] LABS: PLATELET ESTIMATE DECREASED
[2024-04-24] MEDS: DOCUSATE SODIUM 100MG CAPSULE PO SCH (22:20)
[2024-04-24] MEDS: SENNOSIDES 8.6MG TABLET PO SCH (22:20)
[2024-04-24 22:21] LABS: HEMOGLOBIN 10.4 g/dL (12.0-16.0)
[2024-04-24] MEDS: BUDESONIDE 0.5MG/2ML NEB HHN SCH (23:00)
[2024-04-24 23:55] LABS: PLATELET ESTIMATE DECREASED
[2024-04-25] VITALS (13 sets, daily range): BP systolic 93–136; BP diastolic 46–88; PULSE 66–94; RESP 13–21; TEMP 36.33624–36.61404; O2SAT 94–100
[2024-04-25 02:20] LABS: HEMATOCRIT 33.4 % (36.0-48.0); HEMOGLOBIN 10.6 g/dL (12.0-16.0)
[2024-04-25 08:54] LABS: HEMATOCRIT. 31.8 % (36.0-48.0); HEMOGLOBIN. 10.2 g/dL (12.0-16.0); MEAN CORPUSCULAR HEMOGLOBIN 32.3 pg (28.0-32.0); MEAN CORPUSCULAR HGB CONC 32.1 g/dL (31.0-37.0); MEAN CORPUSCULAR VOLUME 100.4 fL (81.0-99.0); MEAN PLATELET VOLUME 11.2 fl (7.4-10.4); PLATELET 54 x1000/uL (130-400); RED BLOOD CELL COUNT 3.17 mill/uL (4.2-5.4); RED CELL DISTRIBUTION WIDTH 18.8 % (11.6-14.6); WHITE BLOOD COUNT 6.1 x1000/uL (4.5-11.0)
[2024-04-25 08:57] LABS: DIFFERENTIAL COMMENT 1
[2024-04-25 08:58] LABS: CHLORIDE 112 mEq/L (98-107); POTASSIUM 4.7 mEq/L (3.5-5.1); SODIUM 148 mEq/L (136-145)
[2024-04-25 08:59] LABS: CALCIUM 10.4 mg/dL (8.7-10.4); CARBON DIOXIDE 23 mEq/L (21-32); INR 1.2; PROTHROMBIN TIME 13.3 sec (9.6-11.0)
[2024-04-25 09:03] LABS: IRON 132 ug/dL (50-170)
[2024-04-25 09:04] LABS: GLUCOSE 88 mg/dL (70-105)
[2024-04-25 09:06] LABS: ALANINE AMINOTRANSFERASE 33 IU/L (10-49); ALBUMIN 3.3 g/dL (3.2-4.8); ASPARTATE AMINOTRANSFERASE 17 IU/L (<34); BILIRUBIN DIRECT 0.3 mg/dL (<=3.0); BILIRUBIN TOTAL 0.6 mg/dL (0.1-1.0); PROTEIN TOTAL 4.9 g/dL (6.0-8.3); TOTAL IRON BINDING CAPACITY 284 ug/dl (250-425)
[2024-04-25 09:08] LABS: FERRITIN 176 ng/mL (10-291); FOLIC ACID (FOLATE) SERUM 9.06 ng/mL (>5.38)
[2024-04-25 09:09] LABS: VITAMIN B12 SERUM 1384 pg/mL (211-911)
[2024-04-25 09:41] LABS: CREATININE 5.5 mg/dL (0.6-1.0)
[2024-04-25 09:43] LABS: UREA NITROGEN BLOOD 124 mg/dL (9-23)
[2024-04-25 10:28] LABS: BG BASE EXCESS -4.9 mmol/L (-2.0-3.0); BG CARBOXYHEMOGLOBIN 1.1 % (0.5-1.5); BG DEOXYHEMOGLOBIN 1.4 % (0.0-5.0); BG FRACTION INSPIRED OXYGEN 40; BG METHEMOGLOBIN 0.3 % (0.5-1.5); BG OXYGEN SATURATION 98.6 % (94.0-98.0); BG OXYHEMOGLOBIN 97.2 % (94.0-98.0); BG PCO2 36.3 mmHg (32.0-45.0); BG PH 7.359 (7.350-7.450); BG PO2 136.9 mmHg (83.0-108.0); BG SAMPLE SITE RIGHT RADIAL; BG TOTAL HEMOGLOBIN 10.3 g/dL (12.0-16.0); BG VENT MODE MASK - BIPAP
[2024-04-25] MEDS: VANCOMYCIN 1G PREMIX 200 ML IV SCH (13:03)
[2024-04-25 15:12] LABS: PLATELET ESTIMATE DECREASED
[2024-04-26] VITALS (23 sets, daily range): BP systolic 79–155; BP diastolic 48–81; PULSE 84–116; RESP 13–25; TEMP 36.22512–36.55848; O2SAT 83–98
[2024-04-26 07:19] LABS: POTASSIUM 5.7 mEq/L (3.5-5.1)
[2024-04-26 07:25] LABS: CALCIUM 10.2 mg/dL (8.7-10.4)
[2024-04-26 08:26] LABS: HEMATOCRIT. 33.7 % (36.0-48.0); HEMOGLOBIN. 10.6 g/dL (12.0-16.0); MEAN CORPUSCULAR HEMOGLOBIN 32.1 pg (28.0-32.0); MEAN CORPUSCULAR HGB CONC 31.6 g/dL (31.0-37.0); MEAN CORPUSCULAR VOLUME 101.4 fL (81.0-99.0); MEAN PLATELET VOLUME 11.6 fl (7.4-10.4); PLATELET 61 x1000/uL (130-400); RED BLOOD CELL COUNT 3.32 mill/uL (4.2-5.4); RED CELL DISTRIBUTION WIDTH 18.5 % (11.6-14.6); WHITE BLOOD COUNT 7.9 x1000/uL (4.5-11.0)
[2024-04-26 09:52] LABS: DIFFERENTIAL COMMENT 1
[2024-04-26] MEDS: SODIUM ZIRCONIUM CYCLOSILICATE 10GM/PACKET PO NR (10:00)
[2024-04-26 10:57] LABS: HEMATOCRIT 32.1 % (36.0-48.0); HEMOGLOBIN 10.2 g/dL (12.0-16.0)
[2024-04-26] MEDS: VANCOMYCIN 500MG PREMIX 100 ML IV NR (21:17)
[2024-04-26 21:51] LABS: ANISOCYTOSIS 2+; OVALOCYTES 1+; PLATELET ESTIMATE MARKEDLY DECREASED
[2024-04-27] VITALS (12 sets, daily range): BP systolic 93–137; BP diastolic 54–130; PULSE 77–95; RESP 13–20; TEMP 35.05836–37.11408; O2SAT 96–100
[2024-04-27 08:54] LABS: POTASSIUM 3.2 mEq/L (3.5-5.1)
[2024-04-27 08:55] LABS: CREATININE 3.6 mg/dL (0.6-1.0)
[2024-04-27 08:56] LABS: HEMATOCRIT. 29.9 % (36.0-48.0); HEMOGLOBIN. 9.7 g/dL (12.0-16.0); MEAN CORPUSCULAR HEMOGLOBIN 32.2 pg (28.0-32.0); MEAN CORPUSCULAR HGB CONC 32.5 g/dL (31.0-37.0); MEAN CORPUSCULAR VOLUME 99.2 fL (81.0-99.0); MEAN PLATELET VOLUME 11.3 fl (7.4-10.4); RED BLOOD CELL COUNT 3.01 mill/uL (4.2-5.4); RED CELL DISTRIBUTION WIDTH 18.3 % (11.6-14.6); WHITE BLOOD COUNT 9.4 x1000/uL (4.5-11.0)
[2024-04-27 10:07] LABS: DIFFERENTIAL COMMENT 1
[2024-04-27 10:21] LABS: PLATELET 45 x1000/uL (130-400)
[2024-04-27] MEDS: HEMORRHOIDAL SUPP PR SCH (11:32)
[2024-04-27 23:30] LABS: PLATELET ESTIMATE DECREASED
[2024-04-28] VITALS (22 sets, daily range): BP systolic 102–142; BP diastolic 51–80; PULSE 55–98; RESP 15–26; TEMP 35.66952–36.55848; O2SAT 89–99
[2024-04-28 07:09] LABS: POTASSIUM 3.5 mEq/L (3.5-5.1)
[2024-04-28 07:11] LABS: CALCIUM 9.9 mg/dL (8.7-10.4)
[2024-04-28 07:15] LABS: CREATININE 4.4 mg/dL (0.6-1.0)
[2024-04-28 07:57] LABS: HEMATOCRIT. 29.6 % (36.0-48.0); HEMOGLOBIN. 9.6 g/dL (12.0-16.0); MEAN CORPUSCULAR HEMOGLOBIN 32.3 pg (28.0-32.0); MEAN CORPUSCULAR HGB CONC 32.4 g/dL (31.0-37.0); MEAN CORPUSCULAR VOLUME 99.5 fL (81.0-99.0); MEAN PLATELET VOLUME 11.3 fl (7.4-10.4); RED BLOOD CELL COUNT 2.98 mill/uL (4.2-5.4); RED CELL DISTRIBUTION WIDTH 18.1 % (11.6-14.6); WHITE BLOOD COUNT 10.8 x1000/uL (4.5-11.0)
[2024-04-28 08:28] LABS: DIFFERENTIAL COMMENT 1; PLATELET 45 x1000/uL (130-400)
[2024-04-28 13:17] LABS: PLATELET ESTIMATE MARKEDLY DECREASED; TARGET CELLS FEW
[2024-04-28] MEDS: VANCOMYCIN 500MG/100ML IV NR (22:21)
[2024-04-29] VITALS (11 sets, daily range): BP systolic 106–136; BP diastolic 53–77; PULSE 62–92; RESP 17–20; TEMP 35.89176–36.78072; O2SAT 96–100
[2024-04-30] VITALS: BP 124/61; PULSE 84; RESP 17; TEMP 36.6696; O2SAT 100
[2024-04-30 04:00] VITALS: BP 128/66; PULSE 91; RESP 17; TEMP 36.28068; O2SAT 100
[2024-04-30 12:00] VITALS: BP 121/64; PULSE 89; RESP 20; TEMP 36.22512; O2SAT 97
[2024-04-30 16:00] VITALS: BP 125/70; PULSE 89; RESP 20; TEMP 36.22512; O2SAT 97
[2024-04-30 20:00] VITALS: BP 133/63; PULSE 84; RESP 18; TEMP 36.33624; O2SAT 100
[2024-05-01] VITALS (13 sets, daily range): BP systolic 72–140; BP diastolic 45–68; PULSE 76–109; RESP 16–19; TEMP 35.78064–36.89184; O2SAT 95–100
[2024-05-01] MEDS: METHYLPREDNISOLONE SOD SUCC 40MG/ML (ACT-O-VIAL) IV SCH (09:00)
[2024-05-02] VITALS (7 sets, daily range): BP systolic 111–142; BP diastolic 52–77; PULSE 74–91; RESP 16–20; TEMP 36.1–36.7; O2SAT 96–97
[2024-05-02] MEDS: PANTOPRAZOLE 40MG DR TABLET PO SCH (06:39)
[2024-05-02 06:43] LABS: CHLORIDE 108 mEq/L (98-107); POTASSIUM 3.4 mEq/L (3.5-5.1); SODIUM 144 mEq/L (136-145)
[2024-05-02 06:46] LABS: CALCIUM 9.9 mg/dL (8.7-10.4); CARBON DIOXIDE 26 mEq/L (21-32)
[2024-05-02 06:51] LABS: GLUCOSE 67 mg/dL (70-105); UREA NITROGEN BLOOD 39 mg/dL (9-23)
[2024-05-02 06:52] LABS: ALANINE AMINOTRANSFERASE 46 IU/L (10-49)
[2024-05-02 06:53] LABS: ALBUMIN 3.3 g/dL (3.2-4.8); ASPARTATE AMINOTRANSFERASE 21 IU/L (<34); BILIRUBIN DIRECT 0.2 mg/dL (<=3.0); BILIRUBIN TOTAL 0.4 mg/dL (0.1-1.0); PROTEIN TOTAL 4.9 g/dL (6.0-8.3)
[2024-05-02 06:57] LABS: CREATININE 2.9 mg/dL (0.6-1.0)
[2024-05-02 06:58] LABS: HEMATOCRIT. 29.3 % (36.0-48.0); HEMOGLOBIN. 9.3 g/dL (12.0-16.0); MEAN CORPUSCULAR HEMOGLOBIN 31.9 pg (28.0-32.0); MEAN CORPUSCULAR HGB CONC 31.9 g/dL (31.0-37.0); MEAN PLATELET VOLUME 11.1 fl (7.4-10.4); PLATELET 61 x1000/uL (130-400); RED BLOOD CELL COUNT 2.93 mill/uL (4.2-5.4); RED CELL DISTRIBUTION WIDTH 17.9 % (11.6-14.6); WHITE BLOOD COUNT 9.3 x1000/uL (4.5-11.0)
[2024-05-02 07:13] LABS: DIFFERENTIAL COMMENT 1
[2024-05-02] MEDS: POTASSIUM CHLORIDE 20MEQ TABLET SR PO NR (08:43)
[2024-05-02] MEDS: IPRATROPIUM/ALBUTEROL 0.5-3(2.5)MG/3ML NEB HHN PRN (18:15)
[2024-05-02] MEDS ORDERED: IPRATROPIUM/ALBUTEROL 0.5-3(2.5)MG/3ML NEB HHN SCH (20:00)
[2024-05-02 23:01] LABS: ANISOCYTOSIS 1+; PLATELET ESTIMATE DECREASED
[2024-05-03] VITALS (11 sets, daily range): BP systolic 87–149; BP diastolic 45–70; PULSE 62–92; RESP 16–24; TEMP 35.8–37; O2SAT 95–99
[2024-05-03 06:46] LABS: HEMATOCRIT. 31.2 % (36.0-48.0); HEMOGLOBIN. 9.8 g/dL (12.0-16.0); MEAN CORPUSCULAR HEMOGLOBIN 32.3 pg (28.0-32.0); MEAN CORPUSCULAR HGB CONC 31.4 g/dL (31.0-37.0); MEAN CORPUSCULAR VOLUME 102.7 fL (81.0-99.0); MEAN PLATELET VOLUME 11.3 fl (7.4-10.4); PLATELET 74 x1000/uL (130-400); RED BLOOD CELL COUNT 3.04 mill/uL (4.2-5.4); RED CELL DISTRIBUTION WIDTH 18.4 % (11.6-14.6); WHITE BLOOD COUNT 8.3 x1000/uL (4.5-11.0)
[2024-05-03 06:51] LABS: POTASSIUM 3.8 mEq/L (3.5-5.1)
[2024-05-03 06:52] LABS: CALCIUM 9.3 mg/dL (8.7-10.4)
[2024-05-03 07:14] LABS: DIFFERENTIAL COMMENT 1
[2024-05-03 07:15] LABS: CREATININE 3.8 mg/dL (0.6-1.0)
[2024-05-03 17:59] LABS: ANISOCYTOSIS 1+; PLATELET ESTIMATE DECREASED; TARGET CELLS FEW
[2024-05-04] VITALS: BP 121/61; PULSE 97; RESP 18; TEMP 35.7; O2SAT 95
[2024-05-04 04:00] VITALS: BP 107/52; PULSE 96; RESP 18; TEMP 36.4; O2SAT 97
[2024-05-04 08:00] VITALS: BP 101/57; PULSE 75; RESP 20; TEMP 36.2; O2SAT 100
[2024-05-04 12:00] VITALS: BP 122/55; PULSE 78; RESP 19; TEMP 36.3; O2SAT 100
[2024-05-04 16:00] VITALS: BP 112/57; PULSE 60; RESP 18; TEMP 36.1; O2SAT 100
[2024-05-04] MEDS: ACETAMINOPHEN 325MG TABLET PO PRN (16:29)
[2024-05-04 17:02] LABS: HEMATOCRIT. 29.8 % (36.0-48.0); HEMOGLOBIN. 9.5 g/dL (12.0-16.0); MEAN CORPUSCULAR HEMOGLOBIN 31.9 pg (28.0-32.0); MEAN CORPUSCULAR HGB CONC 31.8 g/dL (31.0-37.0); MEAN PLATELET VOLUME 10.6 fl (7.4-10.4); PLATELET 85 x1000/uL (130-400); RED BLOOD CELL COUNT 2.98 mill/uL (4.2-5.4); WHITE BLOOD COUNT 9.7 x1000/uL (4.5-11.0)
[2024-05-04 17:09] LABS: DIFFERENTIAL COMMENT 1
[2024-05-04 17:11] LABS: POTASSIUM 3.8 mEq/L (3.5-5.1)
[2024-05-04 17:12] LABS: CALCIUM 9.1 mg/dL (8.7-10.4)
[2024-05-04 17:17] LABS: CREATININE 3.4 mg/dL (0.6-1.0)
[2024-05-04 20:00] VITALS: BP 108/61; PULSE 85; RESP 17; TEMP 35.7; O2SAT 95
[2024-05-04 20:07] LABS: ANISOCYTOSIS 1+; PLATELET ESTIMATE DECREASED
[2024-05-05] VITALS (14 sets, daily range): BP systolic 100–134; BP diastolic 38–84; PULSE 55–94; RESP 17–20; TEMP 35.7–37.2; O2SAT 95–100
[2024-05-06 04:00] VITALS: BP 114/49; PULSE 92; RESP 20; TEMP 35.9; O2SAT 95
[2024-05-06 08:00] VITALS: BP 101/53; PULSE 90; RESP 16; TEMP 35.6; O2SAT 95
[2024-05-06 12:00] VITALS: BP 110/70; PULSE 89; RESP 18; TEMP 36.7; O2SAT 96
[2024-05-06 16:00] VITALS: BP 120/80; PULSE 85; RESP 19; TEMP 37.1; O2SAT 95
[2024-05-06 20:00] VITALS: BP 100/57; PULSE 81; RESP 18; TEMP 36.4; O2SAT 99
[2024-05-07] VITALS: BP 110/64; PULSE 98; RESP 18; TEMP 36.4; O2SAT 100
[2024-05-07 08:00] VITALS: BP 133/71; PULSE 95; RESP 19; TEMP 36.1; O2SAT 96
[2024-05-07 12:00] VITALS: BP 115/51; PULSE 102; RESP 20; TEMP 36.1; O2SAT 95
[2024-05-07 16:00] VITALS: BP 109/40; PULSE 106; RESP 21; TEMP 36.2; O2SAT 96
[2024-05-07 20:00] VITALS: BP 115/82; PULSE 81; RESP 16; TEMP 37; O2SAT 99
[2024-05-08] VITALS (14 sets, daily range): BP systolic 85–135; BP diastolic 40–74; PULSE 76–102; RESP 17–20; TEMP 36.1–36.7; O2SAT 93–99
[2024-05-08 01:36] LABS: HEMATOCRIT. 26.9 % (36.0-48.0); HEMOGLOBIN. 8.7 g/dL (12.0-16.0); MEAN CORPUSCULAR HEMOGLOBIN 31.8 pg (28.0-32.0); MEAN CORPUSCULAR HGB CONC 32.4 g/dL (31.0-37.0); MEAN CORPUSCULAR VOLUME 98.3 fL (81.0-99.0); MEAN PLATELET VOLUME 9.1 fl (7.4-10.4); PLATELET 106 x1000/uL (130-400); RED BLOOD CELL COUNT 2.73 mill/uL (4.2-5.4); RED CELL DISTRIBUTION WIDTH 17.7 % (11.6-14.6); WHITE BLOOD COUNT 6.1 x1000/uL (4.5-11.0)
[2024-05-08 01:38] LABS: DIFFERENTIAL COMMENT 1
[2024-05-08 01:41] LABS: POTASSIUM 4.1 mEq/L (3.5-5.1)
[2024-05-08 01:42] LABS: CALCIUM 9.4 mg/dL (8.7-10.4)
[2024-05-08 01:50] LABS: CREATININE 4.7 mg/dL (0.6-1.0)
[2024-05-08 03:04] LABS: PLATELET ESTIMATE SLIGHTL
[2024-05-08 09:08] LABS: POTASSIUM 4.6 mEq/L (3.5-5.1)
[2024-05-08 09:09] LABS: CALCIUM 9.6 mg/dL (8.7-10.4)
[2024-05-08 09:14] LABS: CREATININE 4.9 mg/dL (0.6-1.0)
[2024-05-08 11:02] LABS: HEMATOCRIT. 27.8 % (36.0-48.0); MEAN CORPUSCULAR HEMOGLOBIN 32.2 pg (28.0-32.0); MEAN CORPUSCULAR HGB CONC 32.4 g/dL (31.0-37.0); MEAN CORPUSCULAR VOLUME 99.4 fL (81.0-99.0); MEAN PLATELET VOLUME 9.8 fl (7.4-10.4); PLATELET 112 x1000/uL (130-400); RED CELL DISTRIBUTION WIDTH 17.8 % (11.6-14.6); WHITE BLOOD COUNT 5.9 x1000/uL (4.5-11.0)
[2024-05-08 11:26] LABS: DIFFERENTIAL COMMENT 1
[2024-05-08] MEDS ORDERED: IPRATROPIUM/ALBUTEROL 0.5-3(2.5)MG/3ML NEB HHN PRN (12:00)
[2024-05-08] MEDS ORDERED: IPRATROPIUM/ALBUTEROL 0.5-3(2.5)MG/3ML NEB HHN SCH (12:00)
[2024-05-08] MEDS: MIDODRINE HCL 5MG TABLET PO SCH (18:17)
[2024-05-08 22:55] LABS: ANISOCYTOSIS 1+; PLATELET ESTIMATE DECREASED
[2024-05-09] VITALS: BP 143/57; PULSE 82; RESP 19; TEMP 36.8; O2SAT 99
[2024-05-09 04:00] VITALS: BP 126/67; PULSE 73; RESP 18; TEMP 36.3; O2SAT 97
[2024-05-09 07:57] LABS: BASOPHILS % 0.6 % (0.0-2.0); HEMATOCRIT. 26.8 % (36.0-48.0); HEMOGLOBIN. 8.5 g/dL (12.0-16.0); MEAN CORPUSCULAR HEMOGLOBIN 31.6 pg (28.0-32.0); MEAN CORPUSCULAR HGB CONC 31.8 g/dL (31.0-37.0); MEAN CORPUSCULAR VOLUME 99.4 fL (81.0-99.0); MEAN PLATELET VOLUME 9.2 fl (7.4-10.4); NEUTROPHILS % 83.4 % (40.0-76.0); PLATELET 103 x1000/uL (130-400); POTASSIUM 4.1 mEq/L (3.5-5.1); RED BLOOD CELL COUNT 2.69 mill/uL (4.2-5.4); RED CELL DISTRIBUTION WIDTH 17.5 % (11.6-14.6); WHITE BLOOD COUNT 4.6 x1000/uL (4.5-11.0)
[2024-05-09 07:58] LABS: CALCIUM 9.2 mg/dL (8.7-10.4)
[2024-05-09 08:00] VITALS: BP 93/50; PULSE 86; RESP 18; TEMP 36.4; O2SAT 98
[2024-05-09 08:02] LABS: CREATININE 3.5 mg/dL (0.6-1.0)
[2024-05-09 12:00] VITALS: BP 91/50; PULSE 78; RESP 17; TEMP 35.7; O2SAT 98
[2024-05-09 16:00] VITALS: BP 104/55; PULSE 82; RESP 18; TEMP 35.8; O2SAT 97
[2024-05-09 20:00] VITALS: BP 108/76; PULSE 71; RESP 18; TEMP 36.3; O2SAT 98
[2024-05-10] VITALS (13 sets, daily range): BP systolic 91–142; BP diastolic 32–81; PULSE 80–93; RESP 17–20; TEMP 36.1–36.8; O2SAT 95–100
[2024-05-10 07:52] LABS: BASOPHILS % 0.9 % (0.0-2.0); EOSINOPHILS % 1.2 % (0.0-5.0); HEMATOCRIT. 25.9 % (36.0-48.0); HEMOGLOBIN. 8.2 g/dL (12.0-16.0); LYMPHOCYTES % 7.7 % (20.0-50.0); MEAN CORPUSCULAR HGB CONC 31.6 g/dL (31.0-37.0); MEAN CORPUSCULAR VOLUME 98.3 fL (81.0-99.0); MEAN PLATELET VOLUME 9.3 fl (7.4-10.4); MONOCYTES % 5.1 % (2.0-8.0); NEUTROPHILS % 85.1 % (40.0-76.0); PLATELET 115 x1000/uL (130-400); RED BLOOD CELL COUNT 2.64 mill/uL (4.2-5.4); RED CELL DISTRIBUTION WIDTH 17.9 % (11.6-14.6); WHITE BLOOD COUNT 4.7 x1000/uL (4.5-11.0)
[2024-05-10 08:02] LABS: CALCIUM 8.9 mg/dL (8.7-10.4)
[2024-05-10 08:06] LABS: CREATININE 4.5 mg/dL (0.6-1.0)
[2024-05-11] VITALS: BP 115/66; PULSE 96; RESP 17; TEMP 36.5; O2SAT 99
[2024-05-11 04:00] VITALS: BP 96/54; PULSE 91; RESP 17; TEMP 36.6; O2SAT 99
[2024-05-11 07:49] LABS: POTASSIUM 3.5 mEq/L (3.5-5.1)
[2024-05-11 07:55] LABS: CREATININE 3.5 mg/dL (0.6-1.0)
[2024-05-11 07:57] LABS: BASOPHILS % 0.6 % (0.0-2.0); EOSINOPHILS % 0.9 % (0.0-5.0); HEMATOCRIT. 25.9 % (36.0-48.0); HEMOGLOBIN. 8.3 g/dL (12.0-16.0); LYMPHOCYTES % 9.8 % (20.0-50.0); MEAN CORPUSCULAR HEMOGLOBIN 31.3 pg (28.0-32.0); MEAN CORPUSCULAR VOLUME 97.7 fL (81.0-99.0); MEAN PLATELET VOLUME 8.8 fl (7.4-10.4); MONOCYTES % 7.2 % (2.0-8.0); NEUTROPHILS % 81.5 % (40.0-76.0); PLATELET 103 x1000/uL (130-400); RED BLOOD CELL COUNT 2.65 mill/uL (4.2-5.4); RED CELL DISTRIBUTION WIDTH 17.6 % (11.6-14.6); WHITE BLOOD COUNT 3.9 x1000/uL (4.5-11.0)
[2024-05-11 08:00] VITALS: BP 96/48; PULSE 85; RESP 19; TEMP 36.5; O2SAT 95
[2024-05-11 12:00] VITALS: BP 103/62; PULSE 90; RESP 20; TEMP 36.2; O2SAT 94
[2024-05-11 16:00] VITALS: BP 93/44; PULSE 90; RESP 20; TEMP 36.5; O2SAT 95
[2024-05-11 20:00] VITALS: BP 105/55; PULSE 87; RESP 16; TEMP 35.8; O2SAT 95
[2024-05-12] VITALS (15 sets, daily range): BP systolic 85–150; BP diastolic 36–61; PULSE 78–96; RESP 16–20; TEMP 35.8–36.7; O2SAT 95–100
[2024-05-12 08:38] LABS: CALCIUM 8.6 mg/dL (8.7-10.4); POTASSIUM 4.1 mEq/L (3.5-5.1)
[2024-05-12 08:43] LABS: CREATININE 4.4 mg/dL (0.6-1.0)
[2024-05-12 09:03] LABS: BASOPHILS % 0.6 % (0.0-2.0); EOSINOPHILS % 0.8 % (0.0-5.0); HEMATOCRIT. 26.2 % (36.0-48.0); HEMOGLOBIN. 8.2 g/dL (12.0-16.0); LYMPHOCYTES % 15.2 % (20.0-50.0); MEAN CORPUSCULAR HEMOGLOBIN 30.7 pg (28.0-32.0); MEAN CORPUSCULAR HGB CONC 31.1 g/dL (31.0-37.0); MEAN CORPUSCULAR VOLUME 98.7 fL (81.0-99.0); MEAN PLATELET VOLUME 9.1 fl (7.4-10.4); MONOCYTES % 9.8 % (2.0-8.0); NEUTROPHILS % 73.6 % (40.0-76.0); PLATELET 113 x1000/uL (130-400); RED BLOOD CELL COUNT 2.66 mill/uL (4.2-5.4); RED CELL DISTRIBUTION WIDTH 18.3 % (11.6-14.6); WHITE BLOOD COUNT 3.6 x1000/uL (4.5-11.0)
[2024-05-12] MEDS: EPOETIN ALFA-EPBX 4,000 UNIT/ML VIAL SUBCUT SCH (21:24)
[2024-05-13] VITALS: BP 125/44; PULSE 91; RESP 17; TEMP 36.2; O2SAT 100
[2024-05-13 04:00] VITALS: BP 139/46; PULSE 93; RESP 17; TEMP 36.2; O2SAT 100
[2024-05-13 08:00] VITALS: BP 97/53; PULSE 89; RESP 18; TEMP 35.8; O2SAT 96
[2024-05-13 12:00] VITALS: BP 93/48; PULSE 87; RESP 20; TEMP 36.3; O2SAT 100
[2024-05-13 16:00] VITALS: PULSE 84; RESP 18; TEMP 36.1; O2SAT 100
[2024-05-13 20:00] VITALS: BP 141/57; PULSE 86; RESP 17; TEMP 36.2; O2SAT 100
[2024-05-14] VITALS: BP 110/43; PULSE 74; RESP 17; TEMP 36.4; O2SAT 100
[2024-05-14 04:00] VITALS: BP 116/51; PULSE 89; RESP 17; TEMP 36.5; O2SAT 100
[2024-05-14 06:25] LABS: CALCIUM 8.7 mg/dL (8.7-10.4); CARBON DIOXIDE 25 mEq/L (21-32); CHLORIDE 106 mEq/L (98-107); POTASSIUM 4.5 mEq/L (3.5-5.1); SODIUM 139 mEq/L (136-145)
[2024-05-14 06:31] LABS: GLUCOSE 65 mg/dL (70-105); UREA NITROGEN BLOOD 56 mg/dL (9-23)
[2024-05-14 06:33] LABS: PHOSPHORUS 5.6 mg/dL (2.5-4.9)
[2024-05-14 08:00] VITALS: BP 110/49; PULSE 82; RESP 20; TEMP 36.2; O2SAT 95
[2024-05-14 12:00] VITALS: BP 105/40; PULSE 53; RESP 20; TEMP 36.2; O2SAT 100
[2024-05-14 16:00] VITALS: BP 94/40; PULSE 73; RESP 20; TEMP 36.2; O2SAT 97
[2024-05-14 20:00] VITALS: BP 100/41; PULSE 77; RESP 17; TEMP 36.3; O2SAT 97
[2024-05-15] VITALS (14 sets, daily range): BP systolic 92–137; BP diastolic 41–58; PULSE 78–97; RESP 17–22; TEMP 35.7–36.50292; O2SAT 97–100
[2024-05-15 07:16] LABS: BASOPHILS % 0.5 % (0.0-2.0); EOSINOPHILS % 0.5 % (0.0-5.0); HEMATOCRIT. 24.8 % (36.0-48.0); HEMOGLOBIN. 7.8 g/dL (12.0-16.0); LYMPHOCYTES % 12.1 % (20.0-50.0); MEAN CORPUSCULAR HEMOGLOBIN 31.1 pg (28.0-32.0); MEAN CORPUSCULAR HGB CONC 31.4 g/dL (31.0-37.0); MEAN CORPUSCULAR VOLUME 98.8 fL (81.0-99.0); MEAN PLATELET VOLUME 8.7 fl (7.4-10.4); MONOCYTES % 8.5 % (2.0-8.0); NEUTROPHILS % 78.4 % (40.0-76.0); PLATELET 152 x1000/uL (130-400); RED BLOOD CELL COUNT 2.51 mill/uL (4.2-5.4); RED CELL DISTRIBUTION WIDTH 17.9 % (11.6-14.6); WHITE BLOOD COUNT 4.6 x1000/uL (4.5-11.0)
[2024-05-15 07:23] LABS: POTASSIUM 3.8 mEq/L (3.5-5.1)
[2024-05-15 07:25] LABS: CALCIUM 8.5 mg/dL (8.7-10.4)
[2024-05-16] VITALS (7 sets, daily range): BP systolic 110–132; BP diastolic 44–74; PULSE 74–98; RESP 18–21; TEMP 35.8–36.3; O2SAT 92–100
[2024-05-16 10:08] LABS: BASOPHILS % 0.9 % (0.0-2.0); EOSINOPHILS % 0.1 % (0.0-5.0); HEMATOCRIT. 26.4 % (36.0-48.0); HEMOGLOBIN. 8.6 g/dL (12.0-16.0); LYMPHOCYTES % 19.8 % (20.0-50.0); MEAN CORPUSCULAR HGB CONC 32.4 g/dL (31.0-37.0); MEAN CORPUSCULAR VOLUME 98.6 fL (81.0-99.0); MEAN PLATELET VOLUME 8.4 fl (7.4-10.4); MONOCYTES % 11.2 % (2.0-8.0); PLATELET 184 x1000/uL (130-400); RED BLOOD CELL COUNT 2.68 mill/uL (4.2-5.4); RED CELL DISTRIBUTION WIDTH 17.7 % (11.6-14.6)
[2024-05-16 10:23] LABS: POTASSIUM 3.9 mEq/L (3.5-5.1)
[2024-05-16 10:24] LABS: CALCIUM 9.5 mg/dL (8.7-10.4)
[2024-05-16 10:29] LABS: CREATININE 4.6 mg/dL (0.6-1.0)
[2024-05-16] MEDS: IPRATROPIUM/ALBUTEROL 0.5-3(2.5)MG/3ML NEB HHN PRN (20:12)
[2024-05-16] MEDS ORDERED: EPOETIN ALFA 4000UNITS/ML VIAL SUBCUT SCH (21:00)
[2024-05-17] VITALS (7 sets, daily range): BP systolic 94–121; BP diastolic 50–60; PULSE 87–98; RESP 18–20; TEMP 36–36.5; O2SAT 45–100
[2024-05-17 06:25] LABS: POTASSIUM 4.5 mEq/L (3.5-5.1)
[2024-05-17 06:26] LABS: CALCIUM 9.4 mg/dL (8.7-10.4)
[2024-05-17 06:59] LABS: CREATININE 5.2 mg/dL (0.6-1.0)
[2024-05-17 07:17] LABS: BASOPHILS % 0.6 % (0.0-2.0); EOSINOPHILS % 0.6 % (0.0-5.0); HEMATOCRIT. 25.7 % (36.0-48.0); HEMOGLOBIN. 8.1 g/dL (12.0-16.0); LYMPHOCYTES % 18.9 % (20.0-50.0); MEAN CORPUSCULAR HEMOGLOBIN 31.3 pg (28.0-32.0); MEAN CORPUSCULAR HGB CONC 31.5 g/dL (31.0-37.0); MEAN CORPUSCULAR VOLUME 99.4 fL (81.0-99.0); MEAN PLATELET VOLUME 8.5 fl (7.4-10.4); MONOCYTES % 14.7 % (2.0-8.0); NEUTROPHILS % 65.2 % (40.0-76.0); PLATELET 170 x1000/uL (130-400); RED BLOOD CELL COUNT 2.58 mill/uL (4.2-5.4); RED CELL DISTRIBUTION WIDTH 18.1 % (11.6-14.6); WHITE BLOOD COUNT 3.4 x1000/uL (4.5-11.0)
[2024-05-17] MEDS: DOXYCYCLINE 100MG/100ML 100 ML IV SCH (18:13)
[2024-05-17] MEDS: IPRATROPIUM/ALBUTEROL 0.5-3(2.5)MG/3ML NEB HHN SCH (21:27)
[2024-05-17] MEDS: METHYLPREDNISOLONE SOD SUCC 40MG/ML (ACT-O-VIAL) IV SCH (22:31)
[2024-05-18] VITALS (15 sets, daily range): BP systolic 80–100; BP diastolic 34–74; PULSE 63–100; RESP 11–29; TEMP 36.3–36.8; O2SAT 99–100
[2024-05-18] MEDS: CEFTRIAXONE 2GM/50ML 50 ML IV SCH (00:44)
[2024-05-18 07:40] LABS: BASOPHILS % 0.2 % (0.0-2.0); HEMATOCRIT. 23.7 % (36.0-48.0); HEMOGLOBIN. 7.5 g/dL (12.0-16.0); LYMPHOCYTES % 9.9 % (20.0-50.0); MEAN CORPUSCULAR HEMOGLOBIN 31.4 pg (28.0-32.0); MEAN CORPUSCULAR HGB CONC 31.7 g/dL (31.0-37.0); MEAN CORPUSCULAR VOLUME 98.8 fL (81.0-99.0); MEAN PLATELET VOLUME 8.3 fl (7.4-10.4); MONOCYTES % 2.8 % (2.0-8.0); NEUTROPHILS % 87.1 % (40.0-76.0); PLATELET 202 x1000/uL (130-400); RED CELL DISTRIBUTION WIDTH 17.9 % (11.6-14.6); WHITE BLOOD COUNT 4.4 x1000/uL (4.5-11.0)
[2024-05-18 07:49] LABS: CALCIUM 9.2 mg/dL (8.7-10.4); CARBON DIOXIDE 23 mEq/L (21-32); CHLORIDE 108 mEq/L (98-107); SODIUM 142 mEq/L (136-145)
[2024-05-18 07:55] LABS: GLUCOSE 116 mg/dL (70-105); UREA NITROGEN BLOOD 74 mg/dL (9-23)
[2024-05-18 07:58] LABS: CREATININE 6.5 mg/dL (0.6-1.0)
[2024-05-18 08:00] LABS: PHOSPHORUS 8.2 mg/dL (2.5-4.9)
[2024-05-18] MEDS: SEVELAMER CARBONATE 800 MG TABLET PO SCH (13:08)
[2024-05-18] MEDS ORDERED: PIPERACILLIN/TAZO 3.375G/50ML 50 ML IV SCH ×2 (14:00→14:30)
[2024-05-18 16:05] LABS: BG BASE EXCESS 0.3 mmol/L (-2.0-3.0); BG CARBOXYHEMOGLOBIN 1.2 % (0.5-1.5); BG DEOXYHEMOGLOBIN 0.3 % (0.0-5.0); BG HCO3 ACT 29.6 mmol/L (21.0-28.0); BG METHEMOGLOBIN 0.3 % (0.5-1.5); BG OXYGEN SATURATION 99.7 % (94.0-98.0); BG OXYHEMOGLOBIN 98.2 % (94.0-98.0); BG PCO2 82.7 mmHg (32.0-45.0); BG PH 7.172 (7.350-7.450); BG PO2 365.7 mmHg (83.0-108.0); BG SAMPLE SITE LEFT RADIAL; BG TOTAL HEMOGLOBIN 8.2 g/dL (12.0-16.0); BG VENT MODE MASK - NRB
[2024-05-18] MEDS: VANCOMYCIN 1GM/200ML PMX (BAXTER) IV NR (16:58)
[2024-05-18] MEDS: PIPERACILLIN/TAZO 3.375G/50ML 50 ML IV SCH (17:30)
[2024-05-18 17:48] LABS: BG BASE EXCESS 4.2 mmol/L (-2.0-3.0); BG CARBOXYHEMOGLOBIN 1.3 % (0.5-1.5); BG DEOXYHEMOGLOBIN 10.1 % (0.0-5.0); BG FRACTION INSPIRED OXYGEN 30; BG HCO3 ACT 28.5 mmol/L (21.0-28.0); BG METHEMOGLOBIN 0.3 % (0.5-1.5); BG OXYGEN SATURATION 89.7 % (94.0-98.0); BG OXYHEMOGLOBIN 88.3 % (94.0-98.0); BG PCO2 41.5 mmHg (32.0-45.0); BG PH 7.454 (7.350-7.450); BG PO2 51.2 mmHg (83.0-108.0); BG SAMPLE SITE LEFT RADIAL; BG TOTAL HEMOGLOBIN 7.3 g/dL (12.0-16.0); BG VENT MODE MASK - BIPAP
[2024-05-19] VITALS (24 sets, daily range): BP systolic 69–114; BP diastolic 8–78; PULSE 73–108; RESP 2–45; TEMP 36.2–36.9; O2SAT 94–100
[2024-05-20] VITALS (18 sets, daily range): BP systolic 98–127; BP diastolic 40–71; PULSE 74–97; RESP 14–35; TEMP 36.2–36.8; O2SAT 93–100
[2024-05-21] VITALS (17 sets, daily range): BP systolic 79–143; BP diastolic 40–74; PULSE 72–104; RESP 11–29; TEMP 36.2–36.8; O2SAT 98–100
[2024-05-21 06:17] LABS: POTASSIUM 3.5 mEq/L (3.5-5.1)
[2024-05-21 06:19] LABS: CALCIUM 9.1 mg/dL (8.7-10.4)
[2024-05-21 06:23] LABS: CREATININE 4.9 mg/dL (0.6-1.0)
[2024-05-21 08:38] LABS: MEAN CORPUSCULAR HEMOGLOBIN 32.3 pg (28.0-32.0); MEAN CORPUSCULAR HGB CONC 33.3 g/dL (31.0-37.0); MEAN CORPUSCULAR VOLUME 96.9 fL (81.0-99.0); MEAN PLATELET VOLUME 8.6 fl (7.4-10.4); PLATELET 225 x1000/uL (130-400); RED CELL DISTRIBUTION WIDTH 17.9 % (11.6-14.6); WHITE BLOOD COUNT 4.8 x1000/uL (4.5-11.0)
[2024-05-21 08:57] LABS: DIFFERENTIAL COMMENT 1
[2024-05-21 08:59] LABS: HEMATOCRIT. 18.5 % (36.0-48.0); HEMOGLOBIN. 6.2 g/dL (12.0-16.0)
[2024-05-21] MEDS: VANCOMYCIN 500MG/100ML IV NR (17:39)
[2024-05-21 18:05] LABS: ANISOCYTOSIS 1+; PLATELET ESTIMATE NORMAL
[2024-05-21] MEDS ORDERED: EPOETIN ALFA 4000UNITS/ML VIAL SUBCUT SCH (21:00)
[2024-05-22] VITALS (25 sets, daily range): BP systolic 80–120; BP diastolic 33–81; PULSE 74–112; RESP 13–29; TEMP 35.89176–37; O2SAT 90–100
[2024-05-22 08:09] LABS: MEAN CORPUSCULAR HEMOGLOBIN 31.1 pg (28.0-32.0); MEAN CORPUSCULAR HGB CONC 32.9 g/dL (31.0-37.0); MEAN CORPUSCULAR VOLUME 94.6 fL (81.0-99.0); MEAN PLATELET VOLUME 8.4 fl (7.4-10.4); PLATELET 244 x1000/uL (130-400); RED BLOOD CELL COUNT 2.26 mill/uL (4.2-5.4); RED CELL DISTRIBUTION WIDTH 19.2 % (11.6-14.6); WHITE BLOOD COUNT 7.3 x1000/uL (4.5-11.0)
[2024-05-22 08:19] LABS: POTASSIUM 3.4 mEq/L (3.5-5.1)
[2024-05-22 09:00] LABS: DIFFERENTIAL COMMENT 1
[2024-05-22 09:01] LABS: HEMATOCRIT. 21.4 % (36.0-48.0)
[2024-05-22 17:50] LABS: ANISOCYTOSIS 1+; PLATELET ESTIMATE NORMAL
[2024-05-22] MEDS: IPRATROPIUM/ALBUTEROL 0.5-3(2.5)MG/3ML NEB ONE (22:17)
[2024-05-23] VITALS (20 sets, daily range): BP systolic 102–142; BP diastolic 5–116; PULSE 82–104; RESP 13–25; TEMP 36.22512–36.8; O2SAT 95–100
[2024-05-23] MEDS: IPRATROPIUM/ALBUTEROL 0.5-3(2.5)MG/3ML NEB HHN SCH (04:44)
[2024-05-23 06:21] LABS: POTASSIUM 4.1 mEq/L (3.5-5.1)
[2024-05-23 06:22] LABS: CALCIUM 8.9 mg/dL (8.7-10.4)
[2024-05-23 06:26] LABS: CREATININE 4.8 mg/dL (0.6-1.0)
[2024-05-23 08:52] LABS: HEMATOCRIT. 21.4 % (36.0-48.0); MEAN CORPUSCULAR HEMOGLOBIN 30.8 pg (28.0-32.0); MEAN CORPUSCULAR VOLUME 96.2 fL (81.0-99.0); MEAN PLATELET VOLUME 8.5 fl (7.4-10.4); PLATELET 251 x1000/uL (130-400); RED BLOOD CELL COUNT 2.23 mill/uL (4.2-5.4); RED CELL DISTRIBUTION WIDTH 19.7 % (11.6-14.6)
[2024-05-23 09:01] LABS: DIFFERENTIAL COMMENT 1
[2024-05-23 09:05] LABS: HEMOGLOBIN. 6.9 g/dL (12.0-16.0)
[2024-05-23 23:16] LABS: ANISOCYTOSIS 1+; PLATELET ESTIMATE NORMAL
[2024-05-24] VITALS (23 sets, daily range): BP systolic 95–129; BP diastolic 40–90; PULSE 64–107; RESP 13–25; TEMP 36.1–36.8; O2SAT 94–100
[2024-05-24 04:09] LABS: HEMATOCRIT 25.3 % (36.0-48.0); HEMOGLOBIN 8.1 g/dL (12.0-16.0); MEAN CORPUSCULAR HEMOGLOBIN 30.6 pg (28.0-32.0); MEAN CORPUSCULAR HGB CONC 32.1 g/dL (31.0-37.0); MEAN CORPUSCULAR VOLUME 95.2 fL (81.0-99.0); PLATELET 234 x1000/uL (130-400); RED BLOOD CELL COUNT 2.65 mill/uL (4.2-5.4); RED CELL DISTRIBUTION WIDTH 18.6 % (11.6-14.6); WHITE BLOOD COUNT 8.1 x1000/uL (4.5-11.0)
[2024-05-24 07:01] LABS: HEMOGLOBIN. 7.8 g/dL (12.0-16.0); MEAN CORPUSCULAR HEMOGLOBIN 30.9 pg (28.0-32.0); MEAN CORPUSCULAR HGB CONC 32.5 g/dL (31.0-37.0); MEAN CORPUSCULAR VOLUME 94.8 fL (81.0-99.0); MEAN PLATELET VOLUME 8.5 fl (7.4-10.4); PLATELET 244 x1000/uL (130-400); RED BLOOD CELL COUNT 2.53 mill/uL (4.2-5.4); RED CELL DISTRIBUTION WIDTH 18.6 % (11.6-14.6)
[2024-05-24 07:21] LABS: DIFFERENTIAL COMMENT 1
[2024-05-24 09:24] LABS: POTASSIUM 3.8 mEq/L (3.5-5.1)
[2024-05-24 09:25] LABS: CALCIUM 9.8 mg/dL (8.7-10.4)
[2024-05-24 09:32] LABS: CREATININE 5.9 mg/dL (0.6-1.0)
[2024-05-24 18:13] LABS: ANISOCYTOSIS 1+; PLATELET ESTIMATE NORMAL
[2024-05-24 22:36] LABS: POTASSIUM 3.6 mEq/L (3.5-5.1)
[2024-05-24 22:38] LABS: CALCIUM 9.3 mg/dL (8.7-10.4)
[2024-05-24 22:51] LABS: CREATININE 6.1 mg/dL (0.6-1.0)
[2024-05-25] VITALS (19 sets, daily range): BP systolic 87–143; BP diastolic 44–110; PULSE 79–108; RESP 16–27; TEMP 36.1–36.8; O2SAT 92–100
[2024-05-26] VITALS (22 sets, daily range): BP systolic 118–154; BP diastolic 46–83; PULSE 74–99; RESP 14–29; TEMP 35.7–36.7; O2SAT 91–98
[2024-05-26 08:02] LABS: HEMATOCRIT. 22.3 % (36.0-48.0); HEMOGLOBIN. 7.2 g/dL (12.0-16.0); MEAN CORPUSCULAR HGB CONC 32.5 g/dL (31.0-37.0); MEAN CORPUSCULAR VOLUME 98.5 fL (81.0-99.0); MEAN PLATELET VOLUME 8.3 fl (7.4-10.4); PLATELET 266 x1000/uL (130-400); RED BLOOD CELL COUNT 2.26 mill/uL (4.2-5.4); RED CELL DISTRIBUTION WIDTH 19.2 % (11.6-14.6); WHITE BLOOD COUNT 8.7 x1000/uL (4.5-11.0)
[2024-05-26 08:30] LABS: POTASSIUM 4.6 mEq/L (3.5-5.1)
[2024-05-26 08:31] LABS: CALCIUM 9.1 mg/dL (8.7-10.4)
[2024-05-26 09:07] LABS: CREATININE 7.3 mg/dL (0.6-1.0)
[2024-05-26 09:55] LABS: DIFFERENTIAL COMMENT 1
[2024-05-26 18:08] LABS: ANISOCYTOSIS 1+; NUCLEATED RED BLOOD CELLS 3 /100 WBC; PLATELET ESTIMATE NORMAL
[2024-05-27] VITALS (10 sets, daily range): BP systolic 126–150; BP diastolic 66–86; PULSE 72–94; RESP 17–20; TEMP 35.9–36.4; O2SAT 92–98
[2024-05-28] VITALS (8 sets, daily range): BP systolic 114–146; BP diastolic 66–78; PULSE 87–94; RESP 16–20; TEMP 35.3–36.4; O2SAT 94–100
[2024-05-29] VITALS (11 sets, daily range): BP systolic 117–152; BP diastolic 57–96; PULSE 67–90; RESP 12–20; TEMP 36.1–36.7; O2SAT 95–100
[2024-05-29 16:41] LABS: HEPATITIS B SURFACE ANTIGEN NEGATIVE (Negative)
[2024-05-29 17:01] LABS: HEPATITIS A AB IGM NEGATIVE (Negative)
[2024-05-29 17:02] LABS: HEPATITIS B CORE AB IGM NEGATIVE (Negative); HEPATITIS C AB NON REACTIVE (Neg) (Negative)
[2024-05-30] VITALS: BP 131/47; PULSE 81; RESP 19; TEMP 36.1; O2SAT 86
[2024-05-30 07:03] LABS: HEMATOCRIT. 28.8 % (36.0-48.0); HEMOGLOBIN. 9.5 g/dL (12.0-16.0); MEAN CORPUSCULAR HEMOGLOBIN 30.6 pg (28.0-32.0); MEAN CORPUSCULAR HGB CONC 32.8 g/dL (31.0-37.0); MEAN CORPUSCULAR VOLUME 93.1 fL (81.0-99.0); MEAN PLATELET VOLUME 8.4 fl (7.4-10.4); PLATELET 275 x1000/uL (130-400); RED CELL DISTRIBUTION WIDTH 19.5 % (11.6-14.6); WHITE BLOOD COUNT 8.5 x1000/uL (4.5-11.0)
[2024-05-30 07:24] LABS: POTASSIUM 4.5 mEq/L (3.5-5.1)
[2024-05-30 07:26] LABS: CALCIUM 9.9 mg/dL (8.7-10.4)
[2024-05-30 07:30] LABS: DIFFERENTIAL COMMENT 1
[2024-05-30 16:18] LABS: NUCLEATED RED BLOOD CELLS 11 /100 WBC; PLATELET ESTIMATE NORMAL
[2024-05-30 20:00] VITALS: BP 135/64; PULSE 91; RESP 18; TEMP 36.1; O2SAT 100
[2024-05-31] VITALS (13 sets, daily range): BP systolic 112–144; BP diastolic 49–89; PULSE 74–94; RESP 16–19; TEMP 36.1–36.50292; O2SAT 93–100
[2024-05-31 12:36] LABS: HEMATOCRIT. 27.8 % (36.0-48.0); HEMOGLOBIN. 8.9 g/dL (12.0-16.0); MEAN CORPUSCULAR HEMOGLOBIN 30.3 pg (28.0-32.0); MEAN CORPUSCULAR HGB CONC 31.9 g/dL (31.0-37.0); MEAN CORPUSCULAR VOLUME 94.8 fL (81.0-99.0); MEAN PLATELET VOLUME 8.6 fl (7.4-10.4); PLATELET 216 x1000/uL (130-400); RED BLOOD CELL COUNT 2.93 mill/uL (4.2-5.4); RED CELL DISTRIBUTION WIDTH 19.5 % (11.6-14.6)
[2024-05-31 12:37] LABS: DIFFERENTIAL COMMENT 1
[2024-05-31 12:41] LABS: CALCIUM 9.1 mg/dL (8.7-10.4); CARBON DIOXIDE 26 mEq/L (21-32); CHLORIDE 94 mEq/L (98-107); POTASSIUM 4.9 mEq/L (3.5-5.1); SODIUM 134 mEq/L (136-145)
[2024-05-31 12:46] LABS: GLUCOSE 107 mg/dL (70-105)
[2024-05-31 12:47] LABS: UREA NITROGEN BLOOD 88 mg/dL (9-23)
[2024-05-31 13:03] LABS: CREATININE 5.6 mg/dL (0.6-1.0)
[2024-05-31 13:08] LABS: PHOSPHORUS 10.3 mg/dL (2.5-4.9)
[2024-05-31 15:04] LABS: NUCLEATED RED BLOOD CELLS 16 /100 WBC; PLATELET ESTIMATE NORMAL
[2024-05-31 15:05] LABS: ANISOCYTOSIS 2+
[2024-05-31] MEDS ORDERED: IPRATROPIUM/ALBUTEROL 0.5-3(2.5)MG/3ML NEB HHN PRN (16:45)
[2024-06-01] VITALS: BP 112/49; PULSE 74; RESP 16; TEMP 36.3; O2SAT 96
[2024-06-01 04:00] VITALS: BP 129/64; PULSE 84; RESP 19; TEMP 36.3; O2SAT 100
[2024-06-01 08:00] VITALS: BP_SYST 102; BP_SYST 155; BP_DIAS 56; BP_DIAS 69; PULSE 62; RESP 18; RESP 20; TEMP 36.7; O2SAT 100; O2SAT 99
[2024-06-01 08:07] LABS: POTASSIUM 4.5 mEq/L (3.5-5.1)
[2024-06-01 08:08] LABS: HEMATOCRIT. 25.1 % (36.0-48.0); MEAN CORPUSCULAR HEMOGLOBIN 30.7 pg (28.0-32.0); MEAN CORPUSCULAR VOLUME 96.2 fL (81.0-99.0); MEAN PLATELET VOLUME 8.5 fl (7.4-10.4); PLATELET 186 x1000/uL (130-400); RED BLOOD CELL COUNT 2.61 mill/uL (4.2-5.4); RED CELL DISTRIBUTION WIDTH 19.8 % (11.6-14.6); WHITE BLOOD COUNT 5.8 x1000/uL (4.5-11.0)
[2024-06-01 08:09] LABS: CALCIUM 8.9 mg/dL (8.7-10.4)
[2024-06-01 08:19] LABS: DIFFERENTIAL COMMENT 1
[2024-06-01 08:58] LABS: CREATININE 3.9 mg/dL (0.6-1.0)
[2024-06-01 16:10] LABS: NUCLEATED RED BLOOD CELLS 11 /100 WBC
[2024-06-01 16:11] LABS: ANISOCYTOSIS 2+; PLATELET ESTIMATE NORMAL
[2024-06-01 20:00] VITALS: BP 140/78; PULSE 88; RESP 16; TEMP 36.4
[2024-06-01] MEDS: IOHEXOL-300 100 ML BOTTLE ONE (20:21)
[2024-06-02] VITALS (13 sets, daily range): BP systolic 98–141; BP diastolic 50–76; PULSE 68–97; RESP 18–24; TEMP 36.2–36.6; O2SAT 91–97
[2024-06-02 07:51] LABS: HEMATOCRIT. 29.7 % (36.0-48.0); HEMOGLOBIN. 9.2 g/dL (12.0-16.0); MEAN CORPUSCULAR HEMOGLOBIN 30.1 pg (28.0-32.0); MEAN CORPUSCULAR HGB CONC 30.9 g/dL (31.0-37.0); MEAN CORPUSCULAR VOLUME 97.5 fL (81.0-99.0); MEAN PLATELET VOLUME 8.7 fl (7.4-10.4); PLATELET 180 x1000/uL (130-400); RED BLOOD CELL COUNT 3.04 mill/uL (4.2-5.4); RED CELL DISTRIBUTION WIDTH 20.9 % (11.6-14.6)
[2024-06-02 08:02] LABS: POTASSIUM 4.7 mEq/L (3.5-5.1)
[2024-06-02 08:04] LABS: CALCIUM 9.1 mg/dL (8.7-10.4)
[2024-06-02 08:08] LABS: CREATININE 4.3 mg/dL (0.6-1.0)
[2024-06-02 08:10] LABS: DIFFERENTIAL COMMENT 1
[2024-06-02 11:03] LABS: ANISOCYTOSIS 2+; NUCLEATED RED BLOOD CELLS 18 /100 WBC; PLATELET ESTIMATE NORMAL
== END 2024-06-02 18:40 | disposition hospice, home (50) | DRG 280 ==
LOC: ER 06:06 → EDBEDREQ 10:00 → EDBEDREQTM 10:34 → EDBEDREQ 10:34 → EDBEDREQSVC 17:05 → CVICU 04-07 21:19 → 5EST 04-14 13:26 → 6WST 04-17 12:05 → MICUSO 04-24 17:25 → 5EST 04-24 17:40 → 6EST 04-27 16:35 → 3WST 05-17 22:59 → 5EST 05-18 18:43 → 8WST 05-26 17:23 → 7EST 05-27 11:45
PROVIDERS: ADMIT Internal Medicine; ATTEND Internal Medicine
PROC: 5A1D70Z Performance of Urinary Filtration, Intermittent, Less than 6 Hours Per Day (ICD-10-PCS; 2024-04-06)
PROC: 02HV33Z Insertion of Infusion Device into Superior Vena Cava, Percutaneous Approach (ICD-10-PCS; 2024-04-08)
PROC: B548ZZA Ultrasonography of Superior Vena Cava, Guidance (ICD-10-PCS; 2024-04-08)
PROC: 5A1D70Z Performance of Urinary Filtration, Intermittent, Less than 6 Hours Per Day (ICD-10-PCS; 2024-04-08)
PROC: 5A1D70Z Performance of Urinary Filtration, Intermittent, Less than 6 Hours Per Day (ICD-10-PCS; 2024-04-10)
PROC: 5A09457 Assistance with Respiratory Ventilation, 24-96 Consecutive Hours, Continuous Positive Airway Pressure (ICD-10-PCS; 2024-04-11)
PROC: 5A1D70Z Performance of Urinary Filtration, Intermittent, Less than 6 Hours Per Day (ICD-10-PCS; 2024-04-12)
PROC: 5A1D70Z Performance of Urinary Filtration, Intermittent, Less than 6 Hours Per Day (ICD-10-PCS; 2024-04-15)
PROC: 4A023N7 Measurement of Cardiac Sampling and Pressure, Left Heart, Percutaneous Approach (ICD-10-PCS; principal; 2024-04-16)
PROC: B211YZZ Fluoroscopy of Multiple Coronary Arteries using Other Contrast (ICD-10-PCS; 2024-04-16)
PROC: 5A09357 Assistance with Respiratory Ventilation, Less than 24 Consecutive Hours, Continuous Positive Airway Pressure (ICD-10-PCS; 2024-04-17)
PROC: 5A1D70Z Performance of Urinary Filtration, Intermittent, Less than 6 Hours Per Day (ICD-10-PCS; 2024-04-18)
PROC: 5A0935A Assistance with Respiratory Ventilation, Less than 24 Consecutive Hours, High Flow/Velocity Cannula (ICD-10-PCS; 2024-04-21)
PROC: 5A1D70Z Performance of Urinary Filtration, Intermittent, Less than 6 Hours Per Day (ICD-10-PCS; 2024-04-21)
PROC: 5A09357 Assistance with Respiratory Ventilation, Less than 24 Consecutive Hours, Continuous Positive Airway Pressure (ICD-10-PCS; 2024-04-24)
PROC: 5A1D70Z Performance of Urinary Filtration, Intermittent, Less than 6 Hours Per Day (ICD-10-PCS; 2024-04-24)
PROC: 5A1D70Z Performance of Urinary Filtration, Intermittent, Less than 6 Hours Per Day (ICD-10-PCS; 2024-04-26)
PROC: 5A1D70Z Performance of Urinary Filtration, Intermittent, Less than 6 Hours Per Day (ICD-10-PCS; 2024-04-28)
PROC: 5A1D70Z Performance of Urinary Filtration, Intermittent, Less than 6 Hours Per Day (ICD-10-PCS; 2024-05-01)
PROC: 5A1D70Z Performance of Urinary Filtration, Intermittent, Less than 6 Hours Per Day (ICD-10-PCS; 2024-05-03)
PROC: 5A1D70Z Performance of Urinary Filtration, Intermittent, Less than 6 Hours Per Day (ICD-10-PCS; 2024-05-05)
PROC: 5A1D70Z Performance of Urinary Filtration, Intermittent, Less than 6 Hours Per Day (ICD-10-PCS; 2024-05-08)
PROC: 5A1D70Z Performance of Urinary Filtration, Intermittent, Less than 6 Hours Per Day (ICD-10-PCS; 2024-05-10)
PROC: 5A1D70Z Performance of Urinary Filtration, Intermittent, Less than 6 Hours Per Day (ICD-10-PCS; 2024-05-12)
PROC: 5A1D70Z Performance of Urinary Filtration, Intermittent, Less than 6 Hours Per Day (ICD-10-PCS; 2024-05-15)
PROC: 5A09357 Assistance with Respiratory Ventilation, Less than 24 Consecutive Hours, Continuous Positive Airway Pressure (ICD-10-PCS; 2024-05-18)
PROC: 5A1D70Z Performance of Urinary Filtration, Intermittent, Less than 6 Hours Per Day (ICD-10-PCS; 2024-05-18)
PROC: 5A09357 Assistance with Respiratory Ventilation, Less than 24 Consecutive Hours, Continuous Positive Airway Pressure (ICD-10-PCS; 2024-05-19)
PROC: 5A1D70Z Performance of Urinary Filtration, Intermittent, Less than 6 Hours Per Day (ICD-10-PCS; 2024-05-19)
PROC: 5A1D70Z Performance of Urinary Filtration, Intermittent, Less than 6 Hours Per Day (ICD-10-PCS; 2024-05-22)
PROC: 5A09357 Assistance with Respiratory Ventilation, Less than 24 Consecutive Hours, Continuous Positive Airway Pressure (ICD-10-PCS; 2024-05-24)
PROC: 5A1D70Z Performance of Urinary Filtration, Intermittent, Less than 6 Hours Per Day (ICD-10-PCS; 2024-05-24)
PROC: 5A09357 Assistance with Respiratory Ventilation, Less than 24 Consecutive Hours, Continuous Positive Airway Pressure (ICD-10-PCS; 2024-05-25)
PROC: 5A09357 Assistance with Respiratory Ventilation, Less than 24 Consecutive Hours, Continuous Positive Airway Pressure (ICD-10-PCS; 2024-05-26)
PROC: 5A1D70Z Performance of Urinary Filtration, Intermittent, Less than 6 Hours Per Day (ICD-10-PCS; 2024-05-26)
PROC: 5A1D70Z Performance of Urinary Filtration, Intermittent, Less than 6 Hours Per Day (ICD-10-PCS; 2024-05-29)
PROC: 5A1D70Z Performance of Urinary Filtration, Intermittent, Less than 6 Hours Per Day (ICD-10-PCS; 2024-05-31)
PROC: 5A1D70Z Performance of Urinary Filtration, Intermittent, Less than 6 Hours Per Day (ICD-10-PCS; 2024-06-02)
DX: I21.4 Non-ST elevation (NSTEMI) myocardial infarction (principal); I50.21 Acute systolic (congestive) heart failure; N18.6 End stage renal disease; J96.22 Acute and chronic respiratory failure with hypercapnia; J18.9 Pneumonia, unspecified organism; K57.91 Diverticulosis of intestine, part unspecified, without perforation or abscess with bleeding; R57.0 Cardiogenic shock; I13.2 Hypertensive heart and chronic kidney disease with heart failure and with stage 5 chronic kidney disease, or end stage renal disease; J44.1 Chronic obstructive pulmonary disease with (acute) exacerbation; E87.0 Hyperosmolality and hypernatremia; R18.8 Other ascites; E87.20 Acidosis, unspecified; J44.0 Chronic obstructive pulmonary disease with (acute) lower respiratory infection; E87.1 Hypo-osmolality and hyponatremia; I42.9 Cardiomyopathy, unspecified; Z99.2 Dependence on renal dialysis; E11.22 Type 2 diabetes mellitus with diabetic chronic kidney disease; E11.65 Type 2 diabetes mellitus with hyperglycemia; E87.5 Hyperkalemia; D53.9 Nutritional anemia, unspecified; Z66 Do not resuscitate; D69.6 Thrombocytopenia, unspecified; I27.20 Pulmonary hypertension, unspecified; N28.1 Cyst of kidney, acquired; D50.0 Iron deficiency anemia secondary to blood loss (chronic); N20.0 Calculus of kidney; K76.89 Other specified diseases of liver; K56.41 Fecal impaction; I25.10 Atherosclerotic heart disease of native coronary artery without angina pectoris; D63.1 Anemia in chronic kidney disease; E83.39 Other disorders of phosphorus metabolism; E83.41 Hypermagnesemia; Z99.81 Dependence on supplemental oxygen; Z51.5 Encounter for palliative care
CPT/HCPCS: 36415; 36573; 36600; 71045; 71275; 74176; 74177; 76604; 76700; 80048; 80051; 80053; 80076; 80202; 82375; 82607; 82728; 82746; 82805; 82962; 83540; 83550; 83735; 83880; 84100; 84145; 84484; 85014; 85018; 85025; 85027; 85044; 85379; 86705; 86706; 86709; 86850; 86900; 86920; 87340; 90935; 92610; 93005; 93306; 93458; 93970; 94070; 94640; 94660; 94664; 94760; 97162; 97166; 97530; 98960; 99291; A4606; A6261; C1725; C1769; C1887; C1893; J0696; J0885; J1200; J1644; J1650; J1815; J2003; J2250; J2270; J2543; J2920; J3010; J3370; J3490; J7626; P9016; Q9967